=== PATIENT | female | born 1945 | race Caucasian/White ===

== ENCOUNTER 2016-10-15 15:38 | Inpatient (IN) ==
[2016-10-15] MEDS ORDERED: TYLENOL PO PRN (15:58)
[2016-10-15] MEDS ORDERED: ATROPINE SULFATE PFS IVP PRN (15:58)
[2016-10-15] MEDS ORDERED: NITROSTAT SL PRN (15:58)
[2016-10-15] MEDS ORDERED: MORPHINE 4 MG/ML SYRINGE IVP PRN (15:58)
[2016-10-15] MEDS ORDERED: VISTARIL INJ IM PRN (15:58)
[2016-10-15] MEDS ORDERED: LOVENOX SUBCUT SCH (16:00)
[2016-10-15] MEDS ORDERED: VASOTEC IV IVP STA (16:15)
[2016-10-15 16:20] VITALS: BMI 25.8
[2016-10-15 16:20] LABS: BASOPHILS % (AUTO) 0.4 % (0.0-3.0); EOSINOPHILS # (AUTO) 0.1 K/ul (0.0-0.7); EOSINOPHILS % (AUTO) 1.4 % (0.0-7.0); HEMATOCRIT 41.4 % (37.0-47.0); HEMOGLOBIN 14.2 g/dl (12.0-16.0); IMMATURE GRANULOCYTE % (AUTO) 0.5 % (0.0-5.0); LYMPHOCYTES # (AUTO) 1.2 K/uL (0.60-3.4); LYMPHOCYTES % (AUTO) 20.9 (10.0-50.0); MEAN CORPUSCULAR HEMOGLOBIN 30.2 pg (27.0-31.0); MEAN CORPUSCULAR HGB CONC 34.3 (31.8-35.4); MEAN CORPUSCULAR VOLUME 88.1 fl (81.0-99.0); MONOCYTES # (AUTO) 0.4 K/uL (0.4-2.0); MONOCYTES % (AUTO) 6.9 (0-10); NEUTROPHILS % (AUTO) 69.9; PLATELET COUNT 179 10^3/uL (140-440); WHITE BLOOD COUNT 5.65 K/ul (4.6-10.2)
--- NOTE | 2016-10-15 16:59 | DI ---
EXAM: Chest one view, frontal view only. HISTORY: Cough. COMPARISON: None available. FINDINGS: Heart is enlarged. There is no vascular congestion. Lungs are clear without pleural eff usion or pneumothorax. No acute osseous abnormality identified. IMPRESSION: Cardiomegaly.
[2016-10-15 17:00] LABS: ALANINE AMINOTRANSFERASE 29 U/L (12-78); ALBUMIN 4.1 g/dL (3.4-5.0); ALBUMIN/GLOBULIN RATIO 1.24; ALKALINE PHOSPHATASE 98 U/L (53-141); ASPARTATE AMINO TRANSFERASE 30 U/L (15-37); BILIRUBIN,TOTAL 0.82 mg/dL (0.00-1.20); BLOOD UREA NITROGEN 10 mg/dL (7-18); BUN/CREATININE RATIO 12.98; CALCIUM 9.7 mg/dL (8.2-10.2); CARBON DIOXIDE 25 mmol/L (23-31); CHLORIDE 106 mmol/L (98-107); CREATINE KINASE 90 U/L; CREATININE 0.77 mg/dL (0.60-1.30); GLUCOSE 102 mg/dL (82-115); MYOGLOBIN 30 ng/ml; SODIUM 140 mmol/L (136-145); TOTAL PROTEIN 7.4 g/dL (5.8-8.1)
--- NOTE | 2016-10-15 17:04 | CT ---
EXAM: CT of the head without contrast History: Dizziness and lightheadedness Comparison: None available. Technique: Multiplanar CT images through the head were obtained without the administration of IV co ntrast Findings: The visualized paranasal sinuses and mastoid air cells are clear in general. No acute ca lvarial abnormalities. Intracranially the ventricular and cisternal spaces are normal in size, shape and configuration for a patient of this age. No dominant mass or midline shift. No hydrocephalous. No acute intracrania l hemorrhage or abnormal extraaxial fluid collections. Benign thick calcification seen along the an terior falx. Impression: No acute intracranial process.
[2016-10-15 17:17] LABS: BILIRUBIN,URINE Negative (NEGATIVE); KETONES,URINE Negative (NEGATIVE); LEUKOCYTE ESTERASE ,URINE Negative (NEGATIVE); NITRITE,URINE Negative (NEGATIVE); PROTEIN,URINE Negative (NEGATIVE); URINE, BLOOD 1+ (NEGATIVE)
[2016-10-15 17:20] LABS: ADD URINE MICROSCOPIC YES
[2016-10-15] MEDS: SODIUM CHLORIDE 1,000 ML IV SCH (17:31)
[2016-10-15] MEDS ORDERED: XANAX PO STA (17:41)
[2016-10-15] MEDS: CATAPRES PO PRN (18:17)
[2016-10-15] MEDS: TOPROL XL PO SCH (20:20)
[2016-10-16 01:28] LABS: CREATINE KINASE 64 U/L; MYOGLOBIN 27 ng/ml
[2016-10-16 05:53] LABS: BASOPHILS % (AUTO) 0.6 % (0.0-3.0); EOSINOPHILS # (AUTO) 0.1 K/ul (0.0-0.7); EOSINOPHILS % (AUTO) 3.3 % (0.0-7.0); HEMATOCRIT 36.7 % (37.0-47.0); HEMOGLOBIN 12.3 g/dl (12.0-16.0); IMMATURE GRANULOCYTE % (AUTO) 0.3 % (0.0-5.0); LYMPHOCYTES # (AUTO) 1.1 K/uL (0.60-3.4); LYMPHOCYTES % (AUTO) 33.8 (10.0-50.0); MEAN CORPUSCULAR HEMOGLOBIN 30.1 pg (27.0-31.0); MEAN CORPUSCULAR HGB CONC 33.5 (31.8-35.4); MONOCYTES # (AUTO) 0.3 K/uL (0.4-2.0); MONOCYTES % (AUTO) 9.7 (0-10); NEUTROPHILS # (AUTO) 1.7 K/ul (2.0-6.9); NEUTROPHILS % (AUTO) 52.3; PLATELET COUNT 122 10^3/uL (140-440); RED BLOOD COUNT 4.08 10^6/ul (4.20-5.40); WHITE BLOOD COUNT 3.31 K/ul (4.6-10.2)
[2016-10-16 06:13] LABS: ALBUMIN 3.4 g/dL (3.4-5.0); ALBUMIN/GLOBULIN RATIO 1.26; ANION GAP 10.2; BILIRUBIN,TOTAL 0.81 mg/dL (0.00-1.20); BUN/CREATININE RATIO 13.23; CALCIUM 8.9 mg/dL (8.2-10.2); CREATININE 0.68 mg/dL (0.60-1.30); POTASSIUM 4.2 mmol/L (3.5-5.10); TOTAL PROTEIN 6.1 g/dL (5.8-8.1)
[2016-10-16] MEDS: CELEXA PO SCH (08:58)
[2016-10-16] MEDS: ELIQUIS PO SCH ×2 (08:59→20:28)
[2016-10-16] MEDS: TOPROL XL PO SCH ×2 (08:59→20:28)
[2016-10-16] MEDS ORDERED: ZESTRIL PO SCH ×3 (09:00)
[2016-10-16] MEDS: HYDROCHLOROTHIAZIDE PO SCH (09:00)
[2016-10-16] MEDS ORDERED: ASPIRIN EC PO SCH (09:00)
[2016-10-16] MEDS: ASPIRIN EC PO SCH (09:00)
--- NOTE | 2016-10-16 12:46 | PCM.PROG ---
Attending Provider: ATTENDING PROVIDER: Dr. DANIELLE AMAYA DATE OF SERVICE: 10/16/16 SUBJECTIVE: This 71 year old WHITE/ F was hospitalized 10/15/16. The patient is admitted with severe uncontrolled hypertension. The patient is in atrial fibrillation (has been for a long time). She states she feels weak and "out of breath" when getting up to the bathroom. She denies any dizziness. No nausea. Chest x-ray showed cardiomegaly. Heart rate is controlled now. CT scan of head is negative for stroke. The patients CHADS2 VASC score with hypertension and age is 3. I discussed with the patient the need for blood thinners and she finally agreed. I discussed the side effects of blood thinners to include intracranial and GI bleed to which she verbalized understanding. REVIEW OF SYSTEMS: CONSTITUTIONAL: Weakness. No fever, no chills. ENDOCRINE: No weight loss or weight gain. HEENT: No sinus drainage, no sore throat. CVS: No angina symptoms. No CHF symptoms. No palpitations. No atypical chest pain for CAD. No shortness of breath at rest. RESPIRATORY: No cough, no hemoptysis. GI: No melena. No abdominal pain. No nausea, no vomiting. : No hematuria. No polyuria. SKIN: No rash. No wounds. MUSCULOSKELETAL: No pain. ROULETTE DEALER: No blackout, no dizziness. No headache. No double vision. PSYCHIATRIC: Not anxious; no depression. No suicidal thoughts. No homicidal thoughts. PHYSICAL EXAMINATION: GENERAL: Lying in bed in no distress. VITAL SIGNS: Temperature 97.5 F, Pulse 62, Respiratory Rate 18, BP 138/87, Pulse Ox 95% HEENT: Normocephalic, atraumatic. Mucosa is dry, pallor positive. NECK: No JVP, no carotid bruit. No lymphadenopathy. CARDIAC: S1, S2, no S3. Irregularly irregular heart rate. LUNGS: Clear to auscultation. ABDOMEN: Soft, non-tender. Bowel sounds active. No rigidity, guarding or CVA tenderness. EXTREMITIES: No clubbing, cyanosis or edema. NEUROLOGIC: Awake, alert and oriented x3. LYMPHATIC: No palpable lymph nodes SKIN: Not dry. Intact. MUSCULOSKELETAL: No joint swelling. LAB REVIEW: 10/16/16 05:40 10/16/16 05:40 10/16/16 05:40: WBC 3.31 L, RBC 4.08 L, Hgb 12.3, Hct 36.7 L, MCV 90.0, MCH 30.1 , MCHC 33.5, RDW Coeff of Noemi 12.4, Plt Count 122 L D, Immature Gran % (Auto) 0.3, Neut % (Auto) 52.3, Lymph % (Auto) 33.8, [place] % (Auto) 9.7, Eos % (Auto) 3.3, Baso % (Auto) 0.6, Immature Gran # (Auto) 0.0, Neut # 1.7 L, Lymph # 1.1, [place] # 0.3 L, Eos # 0.1, Baso # 0.0, Sodium 140, Potassium 4.2, Chloride 105, Carbon Dioxide 29, Anion Gap 10.2, BUN 9, Creatinine 0.68, Estimated GFR (MDRD) 85.00, BUN/Creatinine Ratio 13.23, Glucose 100, Calcium 8.9, Total Bilirubin 0.81, AST 21, ALT 22, Alkaline Phosphatase 80, Total Protein 6.1, Albumin 3.4, Globulin 2.7, Albumin/Globulin Ratio 1.26 10/16/16 00:45: Total Creatine Kinase 64, Myoglobin 27, Troponin I < 0.0100 10/15/16 16:30: Urine Color Yellow, Urine Clarity Clear, Urine pH 7.0, Ur Specific Deale 1.010, Urine Protein Negative, Urine Glucose (UA) Negative, Urine Ketones Negative, Urine Blood 1+, Urine Nitrite Negative, Urine Bilirubin Negative, Urine Urobilinogen 0.2, Ur Leukocyte Esterase Negative, Urine Microscopic RBC 2-5, Ur Squamous Epith Cells 10-20 10/15/16 16:13: WBC 5.65, RBC 4.70, Hgb 14.2, Hct 41.4, MCV 88.1, MCH 30.2, MCHC 34.3, RDW Coeff of Noemi 12.5, Plt Count 179, Immature Gran % (Auto) 0.5, Neut % (Auto) 69.9, Lymph % (Auto) 20.9, [place] % (Auto) 6.9, Eos % (Auto) 1.4, Baso % (Auto) 0.4, Immature Gran # (Auto) 0.0, Neut # 4.0, Lymph # 1.2, [place] # 0.4, Eos # 0.1, Baso # 0.0, D-Dimer (Manual) 834.48, Sodium 140, Potassium 4.0, Chloride 106, Carbon Dioxide 25, Anion Gap 13.0, BUN 10, Creatinine 0.77, Estimated GFR (MDRD) 74.00, BUN/Creatinine Ratio 12.98, Glucose 102, Calcium 9.7 , Total Bilirubin 0.82, AST 30, ALT 29, Alkaline Phosphatase 98, Total Creatine Kinase 90, Myoglobin 30, Troponin I < 0.0100, B-Natriuretic Peptide 427 H, Total Protein 7.4, Albumin 4.1, Globulin 3.3, Albumin/Globulin Ratio 1.24, TSH 1.023 ASSESSMENT: 1. Hypertension uncontrolled 2. Atrial fibrillation 3. Depression 4. Cardiomegaly 5. Anxiety disorder 6. Osteoarthritis PLAN: 1. Eliquis 5 mg b.i.d. 2. Stop Lovenox 3. CT scan of chest without 4. Increase Zestril to 40 mg 5. Echocardiogram 6. Continue rest of her home medications Plan and coordination of the patient's care discussed in the presence of Family Consumer Science Teacher and nurse. CONDITION: Stable SCRIBED BY: GLORIA IVY Tailer In scribed while in presence of service performed by Dr. DANIELLE AMAYA on 10/16/16 ([id number])
[2016-10-16] MEDS: NORCO 5-325 PO PRN (14:16)
--- NOTE | 2016-10-16 14:44 | CT ---
EXAM: CT chest without contrast HISTORY: Shortness of breath COMPARISON: Chest x-ray 10/15/2016 TECHNIQUE: Serial axial images of the chest were obtained from the lung apices to the upper abdomen without contrast. These were viewed in multiple planes. FINDINGS: The thyroid i demonstrates a low attenuation left inferior thyroid lesion measuring 3.3 x 1.8 cm. The visualized vessels demonstrate mild atherosclerotic disease without aneurysm or stenosi s. The heart is mildly enlarged without pericardial effusion. There are no pathologically enlarged lymph nodes. Few scattered calcified hilar lymph nodes are present. There is no pneumothorax. There is trace right pleural fluid with minimal adjacent consolidation. The lungs demonstrate no nodule or mass. There is minimal ground-glass in the lingula. No airway o bstruction is identified. The airways are patent bilaterally. Limited views of the upper abdomen are unremarkable. There is calcified granulomas of the spleen an d liver. The osseous structures demonstrate sclerotic density in the posterior right T6 vertebral b thu which extends minimally into the right pedicle. No additional lytic or sclerotic lesion is iden tified. IMPRESSION: 1. Mild cardiomegaly with no pericardial fluid. 2. Trace right pleural fluid with minimal adjacent consolidation most consistent with atelectasis. 3. Minimal ground-glass in the lingula likely representing atelectasis. 4. Nonspecific sclerosis of the right T6 vertebral body with minimal extension into the pedicle. T his may represent benign versus neoplastic process. No additional osseous sclerotic lesion is ident ified to suggest metastatic disease. If further evaluation is indicated, bone scan may be obtained. 5. Sequela of old granulomatous disease.
[2016-10-17] MEDS: SODIUM CHLORIDE 1,000 ML IV SCH (01:30)
[2016-10-17 06:51] LABS: BASOPHILS % (AUTO) 0.6 % (0.0-3.0); EOSINOPHILS # (AUTO) 0.1 K/ul (0.0-0.7); HEMATOCRIT 37.5 % (37.0-47.0); HEMOGLOBIN 12.3 g/dl (12.0-16.0); IMMATURE GRANULOCYTE % (AUTO) 0.3 % (0.0-5.0); LYMPHOCYTES # (AUTO) 1.1 K/uL (0.60-3.4); LYMPHOCYTES % (AUTO) 31.9 (10.0-50.0); MEAN CORPUSCULAR HEMOGLOBIN 29.5 pg (27.0-31.0); MEAN CORPUSCULAR HGB CONC 32.8 (31.8-35.4); MEAN CORPUSCULAR VOLUME 89.9 fl (81.0-99.0); MONOCYTES # (AUTO) 0.4 K/uL (0.4-2.0); NEUTROPHILS # (AUTO) 1.9 K/ul (2.0-6.9); NEUTROPHILS % (AUTO) 53.2; PLATELET COUNT 148 10^3/uL (140-440); RED BLOOD COUNT 4.17 10^6/ul (4.20-5.40); WHITE BLOOD COUNT 3.51 K/ul (4.6-10.2)
[2016-10-17 07:09] LABS: ALBUMIN 3.5 g/dL (3.4-5.0); ALBUMIN/GLOBULIN RATIO 1.3; ANION GAP 9.2; BILIRUBIN,TOTAL 0.44 mg/dL (0.00-1.20); BUN/CREATININE RATIO 16.43; CREATININE 0.73 mg/dL (0.60-1.30); POTASSIUM 4.2 mmol/L (3.5-5.10); TOTAL PROTEIN 6.2 g/dL (5.8-8.1)
[2016-10-17] MEDS: ASPIRIN EC PO SCH (08:59)
[2016-10-17] MEDS: ELIQUIS PO SCH ×2 (09:00→20:37)
[2016-10-17] MEDS: CELEXA PO SCH (09:00)
[2016-10-17] MEDS: TOPROL XL PO SCH ×2 (09:01→20:38)
[2016-10-17] MEDS: HYDROCHLOROTHIAZIDE PO SCH (09:01)
[2016-10-17] MEDS: ZESTRIL PO SCH ×2 (09:02→20:38)
[2016-10-17] MEDS: NORCO 5-325 PO PRN (19:19)
[2016-10-17] MEDS: CATAPRES PO PRN (21:26)
[2016-10-18 05:32] VITALS: BP 126/70; TEMP 96.5
[2016-10-18 06:19] LABS: ALBUMIN 3.7 g/dL (3.4-5.0); ALBUMIN/GLOBULIN RATIO 1.32; ANION GAP 10.2; BILIRUBIN,TOTAL 0.53 mg/dL (0.00-1.20); BUN/CREATININE RATIO 17.94; CALCIUM 9.6 mg/dL (8.2-10.2); CREATININE 0.78 mg/dL (0.60-1.30); POTASSIUM 4.2 mmol/L (3.5-5.10); TOTAL PROTEIN 6.5 g/dL (5.8-8.1)
[2016-10-18 06:53] LABS: BASOPHILS % (AUTO) 0.7 % (0.0-3.0); EOSINOPHILS # (AUTO) 0.1 K/ul (0.0-0.7); EOSINOPHILS % (AUTO) 3.1 % (0.0-7.0); HEMATOCRIT 40.8 % (37.0-47.0); HEMOGLOBIN 13.4 g/dl (12.0-16.0); IMMATURE GRANULOCYTE % (AUTO) 0.2 % (0.0-5.0); LYMPHOCYTES # (AUTO) 1.4 K/uL (0.60-3.4); LYMPHOCYTES % (AUTO) 33.8 (10.0-50.0); MEAN CORPUSCULAR HEMOGLOBIN 29.6 pg (27.0-31.0); MEAN CORPUSCULAR HGB CONC 32.8 (31.8-35.4); MEAN CORPUSCULAR VOLUME 90.3 fl (81.0-99.0); MONOCYTES # (AUTO) 0.4 K/uL (0.4-2.0); MONOCYTES % (AUTO) 10.6 (0-10); NEUTROPHILS # (AUTO) 2.1 K/ul (2.0-6.9); NEUTROPHILS % (AUTO) 51.6; PLATELET COUNT 163 10^3/uL (140-440); RED BLOOD COUNT 4.52 10^6/ul (4.20-5.40); WHITE BLOOD COUNT 4.14 K/ul (4.6-10.2)
[2016-10-18] MEDS: ELIQUIS PO SCH (08:35)
[2016-10-18] MEDS: ASPIRIN EC PO SCH (08:35)
[2016-10-18] MEDS: ZESTRIL PO SCH (08:36)
[2016-10-18] MEDS: CELEXA PO SCH (08:36)
[2016-10-18] MEDS: TOPROL XL PO SCH (08:36)
[2016-10-18] MEDS: HYDROCHLOROTHIAZIDE PO SCH (08:36)
--- NOTE | 2016-10-20 13:04 | DS ---
DATE OF SERVICE: 10/18/16 FINAL DIAGNOSIS: 1. Hypertension, uncontrolled 2. Atrial fibrillation 3. Cardiomegaly 4. Dyslipidemia 5. Anxiety disorder 6. Depression 7. Osteoarthritis 8. DJD spine DISCHARGE INSTRUCTIONS: Discharge the patient home. Outpatient echocardiogram. Followup with Dr. Robles on 10/22/16. Will schedule an echocardiogram as an outpatient. MEDICATIONS AT DISCHARGE: Aspirin Toprol XL Celexa Hurley Eliquis Hydrochlorothiazide Zestril Xanax NEW PRESCRIPTIONS: Eliquis 5mg PO twice a day CHANGE OF DOSAGE: Lisinopril 40mg twice a day Hydrochlorothiazide 12.5mg PO daily Hydrocodone 1 tablet PO at bedtime Citalopram 20mg PO daily Xanax 0.25mg PO twice a day PRN DIET INSTRUCTIONS: Cardiac and healthy ACTIVITY: As much as tolerated SMOKING: Former Smoker DISEASE SPECIFIC EDUCATION: Hypertension Risk of stroke Atrial Fibrillation halfway anticoagulation, GI bleed and intracranial bleed been discussed. HOSPITAL COURSE: Kelsey Lang who is a 71 year old female came to the office complaining of feeling funny and headache and dizziness. Blood pressures was 200/136 in the office in both arms. At that time the patient was admitted to the hospital and given a dose of Enalaprilat 1.25mg was given and then Clonidine 0.2mg PRN was given. Lisinopril was gradually increased to 40mg PO daily. Chest x-ray showed the cardiomegaly and CT head was negative and CT chest again showed the cardiomegaly. CT chest without contrast again showed the cardiomegaly. No pericardial effusion. Lisinopril 40mg PO twice a day. Meanwhile the patient was anxious, Xanax was given which did help her. As her CHADS2 score was 3 the patient was put on Eliquis with the atrial fibrillation uncontrolled rate, risk of GI bleed and intracranial bleed been discussed. The patient is scheduled for the outpatient echocardiogram as Dr. Degroot could not do inpatient one. TIME SPENT: More than 45 minutes today. DARIO
--- NOTE | 2016-10-21 13:08 | PN ---
DATE OF SERVICE: 10/17/16 SUBJECTIVE: The patient was admitted with the rapid atrial fibrillation and uncontrolled blood pressure. Blood pressure been better and the heart rate is controlled 65 and 64. The patient is due for the ultrasound of the heart today. The patient's daughter was in the room and had a lot of questions, all of them were answered. REVIEW OF SYSTEMS: CONSTITUTIONAL: No fever, no chills. HEENT: Normal. ENDOCRINE: No weight gain, no weight loss. CVS: No angina symptoms. No CHF symptoms. No palpitations. No atypical chest pain for CAD. No shortness of breath. No PND, no orthopnea. RESPIRATORY: No cough, no hemoptysis. GI: No nausea, no vomiting. No abdominal pain. : No hematuria. No polyuria. MUSCULOSKELETAL:. No joint swelling. PSYCHIATRIC: Not anxious. No depression. No suicidal thoughts. No homicidal thoughts. SKIN: Intact. No rash. PHYSICAL EXAMINATION: V/S: Blood pressure 152/83, heart rate 65, respiratory rate 18, temperature 97.6 and pulse ox 95%. HEENT: Normocephalic, atraumatic. Mucosa . NECK: Supple. No JVD, no carotid bruit. No lymphadenopathy. LUNGS: Clear to auscultation. No rales or rhonchi. HEART: Irregular heart rate. S1, S2 normal. No S3. No murmur, gallop or regurgitation. ABDOMEN: Soft, nontender. Bowel sounds active. No rigidity. No rebound or guarding. No CVA tenderness. EXTREMITIES: No clubbing, cyanosis or pedal edema. MUSCULOSKELETAL: No joint swelling. NEUROLOGIC: Awake, alert, oriented times three. No focal deficit. LYMPHATIC: No lymph nodes palpable. SKIN: Intact. LABS: WBC 3.31, hgb 12.3, hct 36.7, plt count 122, sodium 140, potassium 4.2, chloride 105, bicarb 29, BUN 9 and creatinine 0.68. Three sets of cardiac enzymes are negative. ASSESSMENT: 1. Uncontrolled hypertension 2. Atrial fibrillation, on Eliquis 3. Hypertension 4. Dyslipidemia 5. Osteoarthritis 6. DJD Spine PLAN: 1. Echocardiogram today 2. Will increase the Lisinopril to 40mg twice a day 3. Out of bed 4. Activity as tolerated 5. Stop the IV fluids Will follow the patient. TIME SPENT: More than 30 minutes MTDD
--- NOTE | 2016-10-21 14:09 | PN ---
DATE OF SERVICE: 10/18/16 SUBJECTIVE: The patient is doing good. No headache, nausea or vomiting. Blood pressure was slightly elevated in the morning. The patient says that she is getting more anxious being in the hospital. REVIEW OF SYSTEMS: CONSTITUTIONAL: No fever, no chills. HEENT: Normal. ENDOCRINE: No weight gain, no weight loss. CVS: No angina symptoms. No CHF symptoms. No palpitations. No atypical chest pain for CAD. No shortness of breath. No PND, no orthopnea. RESPIRATORY: No cough, no hemoptysis. GI: No nausea, no vomiting. No abdominal pain. : No hematuria. No polyuria. MUSCULOSKELETAL:. No joint swelling. PSYCHIATRIC: Anxious. No depression. No suicidal thoughts. No homicidal thoughts. SKIN: Intact. No rash. PHYSICAL EXAMINATION: V/S: Blood pressure 126/70, respiratory rate 19, heart rate 69, temperature 96.5. HEENT: Normocephalic, atraumatic. Mucosa dry. NECK: Supple. No JVD, no carotid bruit. No lymphadenopathy. LUNGS: Clear to auscultation. No rales or rhonchi. HEART: S1, S2 normal. No S3. No murmur, gallop or regurgitation. ABDOMEN: Soft, nontender. Bowel sounds active. No rigidity. No rebound or guarding. No CVA tenderness. EXTREMITIES: No clubbing, cyanosis or pedal edema. MUSCULOSKELETAL: No joint swelling. NEUROLOGIC: Awake, alert, oriented times three. No focal deficit. LYMPHATIC: No lymph nodes palpable. SKIN: Intact. LABS: White count is 4.14, hemoglobin 13.4, hematocrit 40.8, platelet count 163 , sodium 138, potassium 4.2, chloride 100, bicarb 32, BUN 14, creatinine 0.78. ASSESSMENT: 1. STATUS POST UNCONTROLLED HYPERTENSION 2. ATRIAL FIBRILLATION 3. DEPRESSION 4. CARDIOMEGALY 5. ANXIETY DISORDER 6. OSTEOARTHRITIS PLAN: 1. Discharge the patient home on Eliquis 5 mg twice a day. 2. intermodal dispatcher anticoagulation, side effects, GI bleed and intracranial bleed was discussed. 3. Lisinopril 40 mg p.o. twice daily. 4. Xanax 0.25 mg twice a day prn. 5. Hydrocodone 5/325 mg daily at night time. 6. Hydrochlorothiazide 12.5 mg 7. Fall precautions and Stroke risk was discussed and she verbalized understanding. 8. Will follow up with the patient within one week in the office. TIME SPENT: More than 30 minutes DARIO
== END 2016-10-18 10:55 | disposition home or self-care (01) | DRG 305 ==
LOC: MEDSURG B 15:38
PROVIDERS: ADMIT Emergency Medicine; ATTEND Emergency Medicine
DX: I10 Essential (primary) hypertension (principal); I48.2 Chronic atrial fibrillation; I51.7 Cardiomegaly; R51 Headache; R42 Dizziness and giddiness; E78.5 Hyperlipidemia, unspecified; F41.8 Other specified anxiety disorders; M19.90 Unspecified osteoarthritis, unspecified site; M47.9 Spondylosis, unspecified; Z79.899 Other long term (current) drug therapy
CPT/HCPCS: 36415; 80053; 81001; 82550; 83874; 83880; 84443; 84484; 85025; 85379; 93005; 93010

== ENCOUNTER 2016-10-21 06:45 | Outpatient (CLI) ==
--- NOTE | 2016-10-22 09:52 | ECHO2D ---
Date of Exam: 10/21/16 Ordering Physician: MARILU ANTON Reason for Echo: CARDIOMEGALY/HTN/A-FIB M-Mode Normal Adult Results LV Dimensions Normal Adult Results AoV Opening excursions >1.6 >1.8 LVEDD-base- 3.5-5.8 4.9 Ao root dimensions 2.0-3.7 3.6 LVESD-base- 3.1-4.6 L. Atrium dimensions 1.9-3.8 4.4 Post. Wall thickness 0.8-1.1 1.1 IV septum (thickness) 0.7-1.2 1.0 Post. Wall excursion 0.72-1.3 NORMAL Septal motion NORMAL Systolic motion R. Ventricular cavity 1.5-2.0 NORMAL LVEF 60% 57% Paradoxical septal wall motion NORMAL 2-D : 2-D M Mode Echocardiogram was performed using apical four chamber and left parasternal long and short axis views. Mitral, tricuspid and aortic valves appear to be normal. Contractility of the left ventricle seems to be normal, so is the cavity size. Enlarged left atrial cavity. Aortic root appears to be normal. There is no pericardial effusion. There is no thrombus noted in the left ventricular or left aortic cavity. No mitral valve prolapse noted. DOPPLER WITH COLORFLOW: MILD TO MODERATE MITRAL REGURGITATION NOTED, MILD TRICUSPID REGURGITATION, AND MODERATE AORTIC REGURGITATION M-MODE: MV: NORMAL AV: NORMAL TV: NORMAL PV: CHAMBER SIZE: ENLARGED LEFT ATRIAL CAVITY WALL MOTION: NORMAL PERICARDIUM: NORMAL INTERPRETATION: 1. ENLARGED LEFT ATRIAL CAVITY 2. NORMAL LEFT VENTRICULAR CONTRACTILITY 3. NORMAL VALVES 4. MODERATE AORTIC REGURGITATION, TRICUSPID REGURGITATION, AND MILD MITRAL REGURGITATION MTDD
== END 2016-10-21 06:46 | disposition home or self-care (01) ==
LOC: CAR 06:45
PROVIDERS: ATTEND Internal Medicine
DX: I48.91 Unspecified atrial fibrillation (principal); I10 Essential (primary) hypertension; I51.7 Cardiomegaly

== ENCOUNTER 2017-02-27 11:58 | Inpatient (IN) ==
[2017-02-27] MEDS ORDERED: SODIUM CHLORIDE 1,000 ML IV STA (12:11)
--- NOTE | 2017-02-27 12:37 | CT ---
EXAM: CT brain without contrast HISTORY: Dizziness TECHNIQUE: Multi-slice sequential. Coronal and sagittal reformations were performed. COMPARISON: 10/15/2016 FINDINGS: There is no acute intracranial hemorrhage, extraxial fluid collection, mass affect, or midlineshift. There is mild diffuse sulcal prominence. Ventricular prominence is consistent with the degree of p arenchymal volume loss. Periventricular white matter hypodensity is seen. Intracranial atheroscler osis is present. The basal cisterns are patent. There is a largely empty sella. No large vascular t erritory area of hypodensity is seen within the brain. The calvarium is unremarkable. Visualized pa ranasal sinuses are clear. Mastoid air cells are clear. IMPRESSION: 1. No acute intracranial findings. 2. Age-related changes of mild parenchymal volume loss, small vessel ischemic disease, and intracra nial atherosclerosis. 3. Largely empty sella.
[2017-02-27 13:31] LABS: BASOPHILS % (AUTO) 0.5 % (0.0-3.0); EOSINOPHILS # (AUTO) 0.1 K/ul (0.0-0.7); EOSINOPHILS % (AUTO) 1.1 % (0.0-7.0); HEMATOCRIT 39.4 % (37.0-47.0); HEMOGLOBIN 13.2 g/dl (12.0-16.0); IMMATURE GRANULOCYTE % (AUTO) 0.5 % (0.0-5.0); LYMPHOCYTES # (AUTO) 0.9 K/uL (0.60-3.4); LYMPHOCYTES % (AUTO) 20.6 (10.0-50.0); MEAN CORPUSCULAR HEMOGLOBIN 29.6 pg (27.0-31.0); MEAN CORPUSCULAR HGB CONC 33.5 (31.8-35.4); MEAN CORPUSCULAR VOLUME 88.3 fl (81.0-99.0); MONOCYTES # (AUTO) 0.3 K/uL (0.4-2.0); MONOCYTES % (AUTO) 7.1 (0-10); NEUTROPHILS # (AUTO) 3.1 K/ul (2.0-6.9); NEUTROPHILS % (AUTO) 70.2; PLATELET COUNT 174 10^3/uL (140-440); RED BLOOD COUNT 4.46 10^6/ul (4.20-5.40); WHITE BLOOD COUNT 4.36 K/ul (4.6-10.2)
[2017-02-27 13:41] LABS: BILIRUBIN,URINE Negative (NEGATIVE); KETONES,URINE Negative (NEGATIVE); LEUKOCYTE ESTERASE ,URINE Trace (NEGATIVE); NITRITE,URINE Negative (NEGATIVE); PH,URINE 5.5 (5-9); PROTEIN,URINE Negative (NEGATIVE); URINE, BLOOD 2+ (NEGATIVE)
[2017-02-27 13:42] LABS: ADD URINE MICROSCOPIC YES
[2017-02-27 13:43] LABS: BACTERIA,URINE 3+ (NOT PRESENT)
[2017-02-27 13:54] LABS: ALANINE AMINOTRANSFERASE 24 U/L (12-78); ALBUMIN 3.7 g/dL (3.4-5.0); ALBUMIN/GLOBULIN RATIO 1.28; ALKALINE PHOSPHATASE 81 U/L (53-141); ANION GAP 15.7; ASPARTATE AMINO TRANSFERASE 21 U/L (15-37); BILIRUBIN,TOTAL 0.91 mg/dL (0.00-1.20); BLOOD UREA NITROGEN 10 mg/dL (7-18); BUN/CREATININE RATIO 13.15; CALCIUM 9.2 mg/dL (8.2-10.2); CARBON DIOXIDE 28 mmol/L (23-31); CHLORIDE 99 mmol/L (98-107); CREATINE KINASE 72 U/L; CREATININE 0.76 mg/dL (0.60-1.30); GLUCOSE 84 mg/dL (82-115); POTASSIUM 3.7 mmol/L (3.5-5.10); SODIUM 139 mmol/L (136-145); TOTAL PROTEIN 6.6 g/dL (5.8-8.1)
--- NOTE | 2017-02-27 14:07 | ED.PDOC ---
General ED Provider: Dr. PRACHI GUTIERREZ-ER Chief Complaint: Dizziness Stated Complaint: i worked outside and now i am dizzy Time Seen by Physician: 12:05 Mode of Arrival: Walk-In Information Source: Patient, Family Exam Limitations: No limitations Primary Care Provider: MARILU ANTON Nursing and Triage Documentation Reviewed and Agree: Yes Neurological Complaint Exam - Dizziness Complaint/Exam Last Known Well: yesterday Onset: Sudden Symptoms Are: Still present Timing: Constant Episodes Lasting: Hours Initial Severity: Mild Current Severity: Mild Character: Reports: Lightheaded, Dizzy. Denies: Head spinning, Room spinning, Weak Aggravating: Reports: Position change Alleviating: Reports: None Associated Signs and Symptoms: Reports: Nausea, Palpitations, Unsteady gait, Loss of balance. Denies: Vomiting, Diaphoresis, Tinnitus, Chest pain, Short of air, GI blood loss, Visual changes, Decreased oral intake, Change in medication , Change in diet, OTC meds Related History: Similar episode CVA Risk Factors: Reports: None JVD Present: No Carotid Bruit Present: No Rectal Heme Positive: No Glascow Coma Scale (see protocol): 15 Nystagmus Present: No Gag Reflex Present: Yes Meningeal Signs Positive: No Focal Weakness: Present: None Focal Sensory Loss: Present: None Gait: Abnormal [id number]: Normal Findings Romberg Test Positive: No Babinski Sign: Negative Right, Negative Left Heel to Toe Normal: Yes [place]-Hallpike Test Positive: No Differential Diagnoses: Hypovolemia, Meniere's, Metabolic abnormalities, Other Quality Indicator For Non-Traumatic Chest Pain/Syncope: EKG Performed Review of Systems - Review Of Systems Constitutional: Reports: Weakness Eyes: Reports: No symptoms Ears, Nose, Mouth, Throat: Reports: No symptoms Respiratory: Reports: No symptoms Cardiac: Reports: No symptoms GI: Reports: No symptoms : Reports: No symptoms Musculoskeletal: Reports: No symptoms Skin: Reports: No symptoms Neurological: Reports: Weakness Endocrine: Reports: No symptoms Hematologic/Lymphatic: Reports: No symptoms All Other Systems: Reviewed and Negative Past Medical History - Past Medical History Previously Healthy: Yes Endocrine: Reports: Other Cardiovascular: Reports: A-Fib Respiratory: Reports: Other Hematological: Reports: Unknown Gastrointestinal: Reports: Unknown Genitourinary: Reports: Unknown Neuro/Psych: Reports: Unknown Musculoskeletal: Reports: Unknown Cancer: Reports: Unknown Last Menstrual Period: POST MENOPAUSAL - Surgical History General Surgical History: Reports: Unknown - Family History Family History: Reports: Unknown - Social History Smoking Status: Former smoker Hx Substance Use: No Alcohol Screening: None Lives: With family - Immunizations Tetanus Shot up to Date: No (PATIENT IS UNSURE) Physical Exam - Physical Exam Appearance: Well-appearing, No pain distress, Well-nourished Eyes: SLICK, EOMI, Conjunctiva clear ENT: Ears normal, Nose normal, Oropharynx normal Neck: Supple Respiratory: Airway patent, Breath sounds clear, Breath sounds equal, Respirations nonlabored Cardiovascular: RRR, No rub, No murmur, Irregular rhythm, Abnormal pulses GI/: Soft, Nontender, No masses, Bowel sounds normal, No Organomegaly Musculoskeletal: Normal strength, ROM intact, No edema, No calf tenderness Skin: Warm Neurological: Sensation intact, Motor intact, Reflexes intact, Cranial nerves intact, Alert, Oriented Psychiatric: Affect appropriate, Mood appropriate Interpretation - Radiology Interpretation Radiology Interpretation By: Radiologist Radiology Results: Negative Exam Interpreted: CT Scan Physician Notification - Case Discussed Physician Notified: dr dale Time of Notification: 14:11 Critical Care Note - Critical Care Note Total Time (mins): 0 Course - Course Hematology/Chemistry: 02/27/17 13:25 02/27/17 13:25 Orders, Labs, Meds: Lab Review 02/27/17 13:25 WBC 4.36 L RBC 4.46 Hgb 13.2 Hct 39.4 MCV 88.3 MCH 29.6 MCHC 33.5 RDW Coeff of Noemi 12.7 Plt Count 174 Immature Gran % (Auto) 0.5 Neut % (Auto) 70.2 Lymph % (Auto) 20.6 [place] % (Auto) 7.1 Eos % (Auto) 1.1 Baso % (Auto) 0.5 Immature Gran # (Auto) 0.0 Neut # 3.1 Lymph # 0.9 [place] # 0.3 L Eos # 0.1 Baso # 0.0 Sodium 139 Potassium 3.7 Chloride 99 Carbon Dioxide 28 Anion Gap 15.7 BUN 10 Creatinine 0.76 Estimated GFR (MDRD) 75.00 BUN/Creatinine Ratio 13.15 Glucose 84 Calcium 9.2 Total Bilirubin 0.91 AST 21 ALT 24 Alkaline Phosphatase 81 Total Creatine Kinase 72 Troponin I < 0.0100 Total Protein 6.6 Albumin 3.7 Globulin 2.9 Albumin/Globulin Ratio 1.28 Urine Color Yellow Urine Clarity Slightly Urine pH 5.5 Ur Specific Mcgrath 1.015 Urine Protein Negative Urine Glucose (UA) Negative Urine Ketones Negative Urine Blood 2+ Urine Nitrite Negative Urine Bilirubin Negative Urine Urobilinogen 0.2 Ur Leukocyte Esterase Trace Urine Microscopic WBC 2-5 Ur Squamous Epith Cells 0-2 Urine Bacteria 3+ Orders Category Date Time Status ADMIT PATIENT INPATIENT .TO MEDSURG (MONITORED BED) ADMISSION 02/27/17 14: 13 Active EKG-(ED ONLY) Stat CARDIO 02/27/17 12:11 Ordered ACTIVITY .BR with BRP CARE 02/27/17 14:13 Active INTAKE & OUTPUT Q8HR CARE 02/27/17 14:13 Active TELEMETRY MONITORING TELE CARE 02/27/17 14:13 Active VITAL SIGNS Q4HR CARE 02/27/17 14:13 Active CARDIAC DIET DIETARY 02/27/17 Dinner Ordered ED EDUCATION FINANCE PROCESSOR APPLIED .ONCE EMERGENCY 02/27/17 12:10 Active ED IV/MEDIPORT/POWERPORT .ONCE EMERGENCY 02/27/17 12:11 Active CBC W/ AUTO DIFF DAILY@0600 LAB 02/28/17 06:00 Ordered CBC W/ AUTO DIFF DAILY@0600 LAB 03/01/17 06:00 Ordered CBC W/ AUTO DIFF DAILY@0600 LAB 03/02/17 06:00 Ordered CBC W/ AUTO DIFF DAILY@0600 LAB 03/03/17 06:00 Ordered CBC W/ AUTO DIFF DAILY@0600 LAB 03/04/17 06:00 Ordered CBC W/ AUTO DIFF DAILY@0600 LAB 03/05/17 06:00 Ordered CBC W/ AUTO DIFF DAILY@0600 LAB 03/06/17 06:00 Ordered CBC W/ AUTO DIFF DAILY@0600 LAB 03/07/17 06:00 Ordered CBC W/ AUTO DIFF DAILY@0600 LAB 03/08/17 06:00 Ordered CBC W/ AUTO DIFF DAILY@0600 LAB 03/09/17 06:00 Ordered CBC W/ AUTO DIFF DAILY@0600 LAB 03/10/17 06:00 Ordered CBC W/ AUTO DIFF DAILY@0600 LAB 03/11/17 06:00 Ordered CBC W/ AUTO DIFF DAILY@0600 LAB 03/12/17 06:00 Ordered CBC W/ AUTO DIFF DAILY@0600 LAB 03/13/17 06:00 Ordered CBC W/ AUTO DIFF DAILY@0600 LAB 03/14/17 06:00 Ordered CBC W/ AUTO DIFF DAILY@0600 LAB 03/15/17 06:00 Ordered CBC W/ AUTO DIFF DAILY@0600 LAB 03/16/17 06:00 Ordered CBC W/ AUTO DIFF DAILY@0600 LAB 03/17/17 06:00 Ordered CBC W/ AUTO DIFF DAILY@0600 LAB 03/18/17 06:00 Ordered CBC W/ AUTO DIFF DAILY@0600 LAB 03/19/17 06:00 Ordered CBC W/ AUTO DIFF Stat LAB 02/27/17 13:25 Completed COMPREHENSIVE METABOLIC PANEL DAILY@0600 LAB 02/28/17 06:00 Ordered COMPREHENSIVE METABOLIC PANEL DAILY@0600 LAB 03/01/17 06:00 Ordered COMPREHENSIVE METABOLIC PANEL DAILY@0600 LAB 03/02/17 06:00 Ordered COMPREHENSIVE METABOLIC PANEL DAILY@0600 LAB 03/03/17 06:00 Ordered COMPREHENSIVE METABOLIC PANEL DAILY@0600 LAB 03/04/17 06:00 Ordered COMPREHENSIVE METABOLIC PANEL DAILY@0600 LAB 03/05/17 06:00 Ordered COMPREHENSIVE METABOLIC PANEL DAILY@0600 LAB 03/06/17 06:00 Ordered COMPREHENSIVE METABOLIC PANEL DAILY@0600 LAB 03/07/17 06:00 Ordered COMPREHENSIVE METABOLIC PANEL DAILY@0600 LAB 03/08/17 06:00 Ordered COMPREHENSIVE METABOLIC PANEL DAILY@0600 LAB 03/09/17 06:00 Ordered COMPREHENSIVE METABOLIC PANEL DAILY@0600 LAB 03/10/17 06:00 Ordered COMPREHENSIVE METABOLIC PANEL DAILY@0600 LAB 03/11/17 06:00 Ordered COMPREHENSIVE METABOLIC PANEL DAILY@0600 LAB 03/12/17 06:00 Ordered COMPREHENSIVE METABOLIC PANEL DAILY@0600 LAB 03/13/17 06:00 Ordered COMPREHENSIVE METABOLIC PANEL DAILY@0600 LAB 03/14/17 06:00 Ordered COMPREHENSIVE METABOLIC PANEL DAILY@0600 LAB 03/15/17 06:00 Ordered COMPREHENSIVE METABOLIC PANEL DAILY@0600 LAB 03/16/17 06:00 Ordered COMPREHENSIVE METABOLIC PANEL DAILY@0600 LAB 03/17/17 06:00 Ordered COMPREHENSIVE METABOLIC PANEL DAILY@0600 LAB 03/18/17 06:00 Ordered COMPREHENSIVE METABOLIC PANEL DAILY@0600 LAB 03/19/17 06:00 Ordered COMPREHENSIVE METABOLIC PANEL Stat LAB 02/27/17 13:25 Completed CPK [CREATINE KINASE] Stat LAB 02/27/17 13:25 Completed TROPONIN I Stat LAB 02/27/17 13:25 Completed UA [URINALYSIS C & S IF INDICATED] Stat LAB 02/27/17 13:25 Completed URINE CULTURE Stat LAB 02/27/17 13:25 Received 0.9 % Sodium Chloride [Saline Flush] MEDS 02/27/17 12:11 Ordered 1 syr IVF PRN PRN Alprazolam [Xanax] MEDS 02/27/17 14:14 Ordered 0.25 mg PO BID PRN Apixaban [Eliquis] MEDS 02/27/17 21:00 Ordered 5 mg PO BID Aspirin [Aspirin EC] MEDS 02/28/17 09:00 Ordered 81 mg PO DAILY Citalopram Hydrobromide [Celexa] MEDS 02/28/17 09:00 Ordered 20 mg PO DAILY Hydrochlorothiazide MEDS 02/28/17 09:00 Ordered 12.5 mg PO DAILY Hydrocodone Bit/Acetaminophen [[place] 5-325] MEDS 02/27/17 21:00 Ordered 1 tab PO BEDTIME Lisinopril [Zestril] MEDS 02/27/17 21:00 Ordered 40 mg PO BID Metoprolol Succinate [Toprol Xl] MEDS 02/27/17 21:00 Ordered 50 mg PO BID Sodium Chloride 0.9% [Sodium Chloride] 1,000 ml MEDS 02/27/17 14:30 Ordered IV 75 mls/hr Sodium Chloride 0.9% [Sodium Chloride] 1,000 ml MEDS 02/27/17 12:11 Discontinued IV BOLUS RESUSCITATION STATUS Routine OTHERS 02/27/17 14:[address] HEAD W/O CONTRAST Stat RADS 02/27/17 12:11 Completed Medications Generic Name Dose Route Start Last Admin Trade Name Freq PRN Reason Stop Dose Admin Acetaminophen/Hydrocodone Bitart 1 tab 02/27/17 21:00 [place] 5-325 PO BEDTIME GUNJAN Alprazolam 0.25 mg 02/27/17 14:14 Xanax PO BID PRN Anxiety Apixaban 5 mg 02/27/17 21:00 Eliquis PO BID GUNJAN Aspirin 81 mg 02/28/17 09:00 Aspirin Ec PO DAILY GUNJAN Citalopram Hydrobromide 20 mg 02/28/17 09:00 Celexa PO DAILY GUNJAN Hydrochlorothiazide 12.5 mg 02/28/17 09:00 Hydrochlorothiazide PO DAILY GUNJAN Sodium Chloride 1,000 mls @ 75 mls/hr 02/27/17 14:30 Sodium Chloride IV .[id number] GUNJAN Lisinopril 40 mg 02/27/17 21:00 Zestril PO BID GUNJAN Metoprolol Succinate 50 mg 02/27/17 21:00 Toprol Xl PO BID GUNJAN Sodium Chloride 1 syr 02/27/17 12:11 Saline Flush IVF PRN PRN To flush IV Discontinued Medications Generic Name Dose Route Start Last Admin Trade Name Freq PRN Reason Stop Dose Admin Sodium Chloride 1,000 mls @ 1,000 mls/hr 02/27/17 12:11 02/27/17 12:20 Sodium Chloride IV 02/27/17 13:10 1,000 mls/hr BOLUS STA Administration Vital Signs: Temp Pulse Resp BP Pulse Ox 02/27/17 11:59 98.9 F 78 20 177/92 H 95 Departure - Departure Time of Disposition: 14:11 Disposition: ADMITTED INPATIENT Discharge Problem: Dizziness Instructions: Dizziness (ED) Condition: Good Pt referred to PMD for follow-up: Yes Allergies/Adverse Reactions: Allergies codeine Adverse Reaction (Verified 02/27/17 12:04) Iodinated Contrast- Oral and IV Dye Adverse Reaction (Verified 02/27/17 12:04) Home Medications: Ambulatory Orders Aspirin [Ecotrin] 81 mg PO DAILY 07/02/14 Metoprolol Succinate [Toprol Xl] 50 mg PO BID 07/02/14 Citalopram Hydrobromide [Celexa] 20 mg PO DAILY 10/15/16 Alprazolam [Xanax] 0.25 mg PO BID PRN #30 tablet 10/18/16 Apixaban [Eliquis] 5 mg PO BID #60 tab 10/18/16 Hydrochlorothiazide 12.5 mg PO DAILY #30 tablet 10/18/16 Hydrocodone Bit/Acetaminophen [[place] 5-325] 1 tab PO BEDTIME #30 tab 10/18/16 Lisinopril [Zestril] 40 mg PO BID #60 tablet 10/18/16 Disposition Discussed With: Patient, Family
[2017-02-27] MEDS ORDERED: XANAX PO PRN (14:14)
[2017-02-27] MEDS ORDERED: ROCEPHIN ONE (15:17)
[2017-02-27] MEDS: SODIUM CHLORIDE 1,000 ML IV SCH (15:24)
[2017-02-27] MEDS: ROCEPHIN 1 GM in SODIUM CHLORIDE 50 ML IV SCH (15:24)
[2017-02-27 15:38] VITALS: BMI 26.9
[2017-02-27] MEDS: ELIQUIS PO SCH (20:22)
[2017-02-27] MEDS: TOPROL XL PO SCH (20:23)
[2017-02-27] MEDS: ZESTRIL PO SCH (20:23)
[2017-02-27] MEDS ORDERED: NORCO 5-325 PO SCH (21:00)
[2017-02-28] MEDS: SODIUM CHLORIDE 1,000 ML IV SCH ×2 (01:49→05:14)
[2017-02-28 04:55] LABS: BASOPHILS % (AUTO) 0.5 % (0.0-3.0); EOSINOPHILS # (AUTO) 0.1 K/ul (0.0-0.7); EOSINOPHILS % (AUTO) 2.3 % (0.0-7.0); HEMATOCRIT 34.9 % (37.0-47.0); HEMOGLOBIN 11.9 g/dl (12.0-16.0); IMMATURE GRANULOCYTE % (AUTO) 0.5 % (0.0-5.0); LYMPHOCYTES # (AUTO) 1.5 K/uL (0.60-3.4); LYMPHOCYTES % (AUTO) 39.4 (10.0-50.0); MEAN CORPUSCULAR HGB CONC 34.1 (31.8-35.4); MEAN CORPUSCULAR VOLUME 87.9 fl (81.0-99.0); MONOCYTES # (AUTO) 0.4 K/uL (0.4-2.0); MONOCYTES % (AUTO) 9.6 (0-10); NEUTROPHILS # (AUTO) 1.8 K/ul (2.0-6.9); NEUTROPHILS % (AUTO) 47.7; PLATELET COUNT 160 10^3/uL (140-440); RED BLOOD COUNT 3.97 10^6/ul (4.20-5.40); WHITE BLOOD COUNT 3.86 K/ul (4.6-10.2)
[2017-02-28 05:15] LABS: ALBUMIN 3.3 g/dL (3.4-5.0); ALBUMIN/GLOBULIN RATIO 1.32; ANION GAP 9.9; BILIRUBIN,TOTAL 0.67 mg/dL (0.00-1.20); BUN/CREATININE RATIO 13.15; CREATININE 0.76 mg/dL (0.60-1.30); POTASSIUM 3.9 mmol/L (3.5-5.10); TOTAL PROTEIN 5.8 g/dL (5.8-8.1)
[2017-02-28] MEDS ORDERED: ASPIRIN EC PO SCH (08:00)
[2017-02-28] MEDS: ROCEPHIN 1 GM in SODIUM CHLORIDE 50 ML IV SCH (08:18)
[2017-02-28] MEDS: ELIQUIS PO SCH (08:18)
[2017-02-28] MEDS: TOPROL XL PO SCH (08:19)
[2017-02-28] MEDS: ZESTRIL PO SCH (08:19)
[2017-02-28] MEDS ORDERED: MIRALAX PO SCH (09:00)
[2017-02-28] MEDS ORDERED: HYDROCHLOROTHIAZIDE PO SCH (09:00)
[2017-02-28] MEDS ORDERED: CELEXA PO SCH (09:00)
[2017-02-28 10:13] VITALS: BP 130/79; TEMP 97.7
--- NOTE | 2017-03-22 15:04 | PN ---
DATE OF SERVICE: 02/27/17 SUBJECTIVE: Dizziness and almost fell down. This is a 71 year old female who has a history of atrial fibrillation and was driving with her boyfriend in [place]. While driving, she suddenly felt extremely weak, tired and almost passing out. She went home and started taking rest. By the next day, the patient was still feeling weak, dizzy every time she moves her head or gets up. She came to the emergency room for the evaluation and was seen by Dr. Faith in the emergency room. CBC and CMP was normal. UA showed nitrites negative. Leukocyte esterase trace, 3+ bacteria. CT of the head was negative for the stroke. In view of the patient's risk factors of atrial fibrillation and intractable dizziness and the patient was not able to walk, the patient was admitted to Observation. REVIEW OF SYSTEMS: CONSTITUTIONAL: Dizziness, weakness. No fever, no chills. HEENT: Normal. ENDOCRINE: No weight gain, no weight loss. CVS: No angina symptoms. No CHF symptoms. No palpitations. No atypical chest pain for CAD. No shortness of breath. No PND, no orthopnea. RESPIRATORY: No cough, no hemoptysis. GI: No nausea, no vomiting. No abdominal pain. : No hematuria. No polyuria. MUSCULOSKELETAL:. No joint swelling. PSYCHIATRIC: Not anxious. No depression. No suicidal thoughts. No homicidal thoughts. SKIN: Intact. No rash. PHYSICAL EXAMINATION: V/S: Blood pressure 177/92, respiratory rate 20, heart rate 78, temperature 98.9. HEENT: Normocephalic, atraumatic. Mucosa dry. NECK: Supple. No JVD, no carotid bruit. No lymphadenopathy. LUNGS: Clear to auscultation. No rales or rhonchi. HEART: Irregular. No murmur, gallop or regurgitation. ABDOMEN: Soft, nontender. Bowel sounds active. No rigidity. No rebound or guarding. No CVA tenderness. EXTREMITIES: No clubbing, cyanosis or pedal edema. MUSCULOSKELETAL: No joint swelling. NEUROLOGIC: Awake, alert, oriented times three. No focal deficit. LYMPHATIC: No lymph nodes palpable. SKIN: Intact. ASSESSMENT: 1. DIZZINESS 2. HYPERTENSION, UNCONTROLLED 3. HISTORY OF ATRIAL FIBRILLATION ON ELIQUIS 4. URINARY TRACT INFECTION 5. DEPRESSION 6. OSTEOARTHRITIS 7. ANXIETY DISORDER 8. HEAT EXHAUSTION PLAN: 1. Admit patient for the Observation. 2. IV fluids. 3. Continue home medications. 4. Will follow up with the patient in daily rounds. 5. Rocephin 1 gram daily. TIME SPENT: More than 70 minutes today. MTDD
--- NOTE | 2017-03-22 15:11 | PN ---
DATE OF SERVICE: 02/28/17 SUBJECTIVE: The patient was admitted with heat exhaustion and urinary tract infection. The patient's sister is in the room. The patient is feeling perfectly good. No complaints. No headaches or dizziness and was able to walk in the corridor fine. REVIEW OF SYSTEMS: CONSTITUTIONAL: No fever, no chills. HEENT: Normal. ENDOCRINE: No weight gain, no weight loss. CVS: No angina symptoms. No CHF symptoms. No palpitations. No atypical chest pain for CAD. No shortness of breath. No PND, no orthopnea. RESPIRATORY: No cough, no hemoptysis. GI: No nausea, no vomiting. No abdominal pain. : No hematuria. No polyuria. MUSCULOSKELETAL:. No joint swelling. PSYCHIATRIC: Not anxious. No depression. No suicidal thoughts. No homicidal thoughts. SKIN: Intact. No rash. PHYSICAL EXAMINATION: V/S: Blood pressure 130/79, respiratory rate 18, heart rate 79, temperature 97.7. HEENT: Normocephalic, atraumatic. Mucosa dry. NECK: Supple. No JVD, no carotid bruit. No lymphadenopathy. LUNGS: Bilateral air entry is decreased and clear. No rales or rhonchi. HEART: S1, S2 normal. No S3. No murmur, gallop or regurgitation. ABDOMEN: Soft, nontender. Bowel sounds active. No rigidity. No rebound or guarding. No CVA tenderness. EXTREMITIES: No clubbing, cyanosis or pedal edema. MUSCULOSKELETAL: No joint swelling. NEUROLOGIC: Awake, alert, oriented times three. No focal deficit. LYMPHATIC: No lymph nodes palpable. SKIN: Intact. LABS: Hemoglobin 11.9, hematocrit 34.9, platelet count 167, sodium 142, potassium 3.9, chloride 106, bicarb 30, BUN 10, creatinine 0.76, glucose is 94. ASSESSMENT: 1. HEAT EXHAUSTION 2. DIZZINESS 3. HYPERTENSION 4. ATRIAL FIBRILLATION ON ELIQUIS 5. URINARY TRACT INFECTION PLAN: 1. Discharge the patient home. 2. Antibiotics of Cipro 250 mg twice a day. 3. Increase hydration and Probiotics. 4. Increase hydration while in the sun. 5. Heat exhaustion and prevention were discussed with the patient in detail. TIME SPENT: More than 30 minutes MTDD
--- NOTE | 2017-04-01 14:40 | SSS ---
DATE OF SERVICE: 02/27/17 AND 02/28/17 CHIEF COMPLAINT: Dizziness. HISTORY OF PRESENT ILLNESS: The patient came to the emergency room because of the dizziness. The patient stated that yesterday at approximately 2 p.m., date of service is February 27. At 2 o'clock she went outside and was working in the lawn. She came inside the house and after that she started to get up and she was sweaty, dizzy, nauseated and she tried to take a rest. She woke up the next morning, on the day of admission and still was with the room spinning and was not feeling good and almost passing out. She came to the emergency room and was seen by Dr. Faith. EKG was atrial fibrillation and hypertension with a blood pressure of 177/92. Initial blood work showed mild dehydration. CT of the head did not show any stroke. At that time, the patient was admitted to the hospital for observation and rehydration. PAST MEDICAL HISTORY: History of atrial fibrillation. The patient is being followed by Dr. Solorzano in [place]. Mitral valve prolapse Hypertension GERD Diverticulosis Osteoarthritis History of liver infection in the past Depression Anxiety PAST SURGICAL HISTORY: Cataract surgery History of liver biopsy PERSONAL HISTORY: Does not smoke or drink. and lives by herself. FAMILY HISTORY: Significant for bilateral breast cancer. ALLERGIES: Allergic to Codeine, iodinated contrast, oral and IV dye. HOME MEDICATIONS: Aspirin 81 mg daily Metoprolol 50 mg twice daily Celexa 20 mg daily [place] 5/325 mg at bedtime Apixaban 5 mg twice daily Hydrochlorothiazide 12.5 mg daily Lisinopril 40 mg twice daily Alprazolam 0.25 mg twice daily prn MiraLAX 17 gm daily LABS: Sodium 140, potassium 3.9, chloride 106, bicarb 30, BUN 10, creatinine 0.76, glucose 94, white count 3.86, hemoglobin 11.9, hematocrit 34.9, platelet count [address] of the head is negative. REVIEW OF SYSTEMS: CONSTITUTIONAL: No night sweats. Weakness, tiredness. No fever or chills. HEENT: Eyes: No visual changes. No eye pain. No eye discharge. ENT: No runny nose. No epistaxis. No sinus pain. No sore throat. No odynophagia. No ear pain. No congestion. RESPIRATORY: No cough, no congestion. No hemoptysis. No shortness of breath. CARDIOVASCULAR: No angina symptoms. No CHF symptoms. No atypical chest pain for CAD. No palpitations. No orthopnea. GASTROINTESTINAL: No abdominal pain. No nausea or vomiting. No diarrhea or constipation. No hematemesis. No hematochezia. GENITOURINARY: No dysuria. No hematuria. No obstructive symptoms. No discharge. No pain. No significant abnormal bleeding. MUSCULOSKELETAL: No musculoskeletal pain. No joint swelling. NEUROLOGICAL: Dizziness, lightheadedness. Awake, alert, oriented to time, place and person. No headache. No neck pain. No syncope. No seizures. PSYCHIATRIC: Not anxious. No depression. No suicidal thoughts. No homicidal thoughts. SKIN: No rash. No lesions. No wounds. ENDOCRINE: No unexplained weight loss. No weight gain. HEMATOLOGIC/LYMPHATIC: No anemia. No purpura. No petechiae. No prolonged or excessive bleeding. No palpable lymph nodes. PHYSICAL EXAMINATION: VITAL SIGNS: Blood pressure 130/79, temperature 97.7, respiratory rate 18, pulse rate 79, saturation 97. HEENT: Head normocephalic, atraumatic. Eyes: Extraocular muscles are intact. Pupils are equal, round and reactive to light and accommodation. Ears: No lesions. Nose appeared normal. Throat: No exudate or erythema. NECK: Supple. No JVD, no carotid bruit. No lymphadenopathy or thyromegaly. LUNGS: Clear to auscultation. Percussion note normal. Chest symmetrical. HEART: S1, S2, no S3. No murmurs. No cyanosis or clubbing. No ascites. Pulses: Dorsalis pedis and posterior tibial pulses +1 to +2 both sides. ABDOMEN: Soft. Nontender. Bowel sounds active. No CVA tenderness. No mass felt. EXTREMITIES: No edema. Full range of motion of all extremities, equal. NEUROLOGIC: No focal deficit. Cranial nerves II through XII are grossly intact. No headache, no double vision or headache. SKIN: Not dry. Intact. Turgor - normal. LYMPHATIC: No palpable lymph nodes/no lymphedema. MUSCULOSKELETAL: Normal joints with no swelling. Muscle tone is normal. Old/present records reviewed Office records reviewed. BRIEF HOSPITAL COURSE: The patient was admitted to the hospital and started on IV fluids. Home medications were continued. Xanax continued. Started feeling better and by the next day the patient was up and about and did not have any problems. Blood pressure had been normalized. No more dizziness. She was able to walk fine. At that time, the patient is discharged to home. FINAL DIAGNOSES: 1. HEAT EXHAUSTION 2. NEAR SYNCOPE 3. DIZZINESS 4. ATRIAL FIBRILLATION 5. HYPERTENSION 6. DJD OF THE SPINE 7. DEPRESSION 8. ANXIETY 9. HISTORY OF RECURRENT UTI PLAN: 1. Discharge the patient home. 2. Cipro 250 mg twice a day for urinary tract infection. 3. Increase hydration and probiotics. 4. Take the medications with food. 5. Follow up at the [facility] within four to five days. TIME SPENT: More than 55 minutes. DARIO
== END 2017-02-28 13:15 | disposition home or self-care (01) | DRG 923 ==
LOC: ED 11:58 → MEDSURG A 14:21
PROVIDERS: ADMIT Emergency Medicine; ATTEND Emergency Medicine
DX: T67.5XXA Heat exhaustion, unspecified, initial encounter (principal); N39.0 Urinary tract infection, site not specified; R55 Syncope and collapse; R42 Dizziness and giddiness; R11.0 Nausea; I48.91 Unspecified atrial fibrillation; I10 Essential (primary) hypertension; F41.8 Other specified anxiety disorders; Z87.440 Personal history of urinary (tract) infections; Z79.01 Long term (current) use of anticoagulants; Z79.899 Other long term (current) drug therapy
CPT/HCPCS: 36415; 80053; 81001; 82550; 84484; 85025; 87086; 87186; 93005; 93010; 96360; 99223; 99239; 99284

== ENCOUNTER 2017-03-18 12:50 | Outpatient (CLI) ==
--- NOTE | 2017-03-19 09:10 | MAMMO ---
EXAM: Digital screening mammogram HISTORY: Screening COMPARISON: 09/24/2015 FINDINGS: Digital MLO and CC views of the right and left breast were performed. Computer aided det ection was utilized. There are scattered fibroglandular densities. There are benign and vascular bi lateral calcifications. There is no evidence for mass, asymmetry, distortion, or suspicious calcific ations in either breast. IMPRESSION: 1. No evidence of malignancy in the right or left breast. 2. Annual screening mammogram is recommended in one year. BIRADS category 2, benign
== END 2017-03-18 12:51 | disposition home or self-care (01) ==
LOC: RAD 12:50
PROVIDERS: ATTEND Emergency Medicine
DX: Z12.31 Encounter for screening mammogram for malignant neoplasm of breast (principal)
CPT/HCPCS: 77067

== ENCOUNTER 2017-11-24 08:10 | Emergency (ER) ==
[2017-11-24 08:22] VITALS: BP 185/97; TEMP 97.7; BMI 26.6
--- NOTE | 2017-11-24 08:55 | CT ---
EXAM: CT head without contrast HISTORY: Head pain COMPARISON: CT head 02/27/2017 and 10/15/2016 TECHNIQUE: Serial axial images of the brain were obtained from the skull base to the vertex without IV contrast. FINDINGS: The ventricles, cisterns and sulci demonstrate mild generalized volume loss. The lizarraga-whi te matter junction is maintained. There is mild scattered low attenuation in the periventricular whi te matter. There are calcifications along the anterior midline falx.No midline shift or mass is iden tified. There is no abnormal intra or extra-axial fluid collection. The paranasal sinuses and masto id air cells are clear. The osseous calvarium is intact. IMPRESSION: 1. No acute intracranial abnormality or hemorrhage. 2. Generalized volume loss and microangiopathy.
[2017-11-24] MEDS ORDERED: DILAUDID IM STA (09:23)
--- NOTE | 2017-11-24 10:02 | ED.PDOC ---
General ED Provider: Dr. HARPAL BYERS Chief Complaint: Hypertension Stated Complaint: HYPERTENSION Time Seen by Physician: 08:14 Mode of Arrival: Walk-In Information Source: Patient Exam Limitations: No limitations [facility] and Triage Documentation Reviewed and Agree: Yes Reviewed sepsis parameters & appropriate labs ordered?: Yes System Inflammatory Response Syndrome: Not Applicable Sepsis Protocol: For patient's 13 years and over: Temp is 96.8 and below OR 101 and greater Pulse >90 BPM Resp >20/minute Acutely Altered Mental Status Are patient's symptoms suggestive of a new infection, such as: -Pneumonia -Skin, Soft Tissue -Endocarditis -UTI -Bone, Joint Infection -Implantable Device -Acute Abdominal Infection -Wound Infection -Meningitis -Blood Stream Catheter Infection -Unknown System Inflammatory Response Syndrome: Not Applicable Cardiovascular Complaint Exam - Hypertension Complaint/Exam Onset/Duration: TODAY HAS HEADACHE Symptoms Are: Still present Timing: Constant Reported B/P Prior to Arrival: 180/100 Aggravating: Reports: None Alleviating: Reports: None Associated Signs and Symptoms: Denies: Chest pain, Vision changes, Anxiety, Recent stress, Headache, Numbness, Tingling, Weakness, Dizziness, Short of air, Swelling Related Surgical History: Reports: None Cardiac Risk Factors: Reports: Hypertension Recent Change in Medications: No A/V Nicking: No Papilledema Present: No JVD Present: No Carotid Bruit Present: No Femoral Pulses Bounding: No Differential Diagnoses: Hypertension Review of Systems - Review Of Systems Constitutional: Reports: No symptoms Eyes: Reports: No symptoms Ears, Nose, Mouth, Throat: Reports: No symptoms Respiratory: Reports: No symptoms Cardiac: Reports: No symptoms GI: Reports: No symptoms : Reports: No symptoms Musculoskeletal: Reports: No symptoms Skin: Reports: No symptoms Neurological: Reports: Headache Endocrine: Reports: No symptoms Hematologic/Lymphatic: Reports: No symptoms All Other Systems: Reviewed and Negative Past Medical History - Past Medical History Previously Healthy: Yes Endocrine: Reports: Other Cardiovascular: Reports: A-Fib Respiratory: Reports: Other Hematological: Reports: Unknown Gastrointestinal: Reports: Unknown Genitourinary: Reports: Unknown Neuro/Psych: Reports: Unknown Musculoskeletal: Reports: Unknown Cancer: Reports: Unknown Last Menstrual Period: N/A - Surgical History General Surgical History: Reports: Unknown - Family History Family History: Reports: Unknown - Social History Smoking Status: Former smoker Hx Substance Use: No Alcohol Screening: None Physical Exam - Physical Exam Appearance: Well-appearing, No pain distress, Well-nourished Eyes: SLICK, EOMI, Conjunctiva clear ENT: Ears normal, Nose normal, Oropharynx normal Respiratory: Airway patent, Breath sounds clear, Breath sounds equal, Respirations nonlabored Cardiovascular: RRR, Pulses normal, No rub, No murmur GI/: Soft, Nontender, No masses, Bowel sounds normal, No Organomegaly Musculoskeletal: Normal strength, ROM intact, No edema, No calf tenderness Skin: Warm, Dry, Normal color Neurological: Sensation intact, Motor intact, Reflexes intact, Cranial nerves intact, Alert, Oriented Psychiatric: Affect appropriate, Mood appropriate Critical Care Note - Critical Care Note Total Time (mins): 0 Course - Course Hematology/Chemistry: 11/24/17 08:45 11/24/17 08:45 Orders, Labs, Meds: Lab Review 11/24/17 11/24/17 08:45 08:45 WBC 5.58 RBC 4.12 L Hgb 12.6 Hct 36.4 L MCV 88.3 MCH 30.6 MCHC 34.6 RDW Coeff of Noemi 12.7 Plt Count 151 Immature Gran % (Auto) 0.4 Neut % (Auto) 77.1 Lymph % (Auto) 14.2 Wood % (Auto) 7.0 Eos % (Auto) 1.1 Baso % (Auto) 0.2 Immature Gran # (Auto) 0.0 Neut # (Auto) 4.3 Lymph # (Auto) 0.8 Wood # (Auto) 0.4 Eos # (Auto) 0.1 Baso # (Auto) 0.0 Sodium 140 Potassium 3.7 Chloride 105 Carbon Dioxide 24 Anion Gap 14.7 BUN 8 Creatinine 0.74 Estimated GFR (MDRD) 77.00 BUN/Creatinine Ratio 10.81 Glucose 119 H Calcium 9.4 Total Bilirubin 1.1 AST 30 ALT 29 Alkaline Phosphatase 80 Total Protein 6.6 Albumin 3.8 Globulin 2.8 Albumin/Globulin Ratio 1.36 Orders Category Date Time Status CBC W/ AUTO DIFF Stat LAB 11/24/17 08:45 Completed COMPREHENSIVE METABOLIC PANEL Stat LAB 11/24/17 08:45 Completed Hydromorphone HCl [Dilaudid] MEDS 11/24/17 09:23 Discontinued 0.5 mg IM ONCE STA CT HEAD W/O CONTRAST Stat RADS 11/24/17 08:19 Completed Medications Discontinued Medications Generic Name Dose Route Start Last Admin Trade Name Estela PRN Reason Stop Dose Admin Hydromorphone HCl 0.5 mg 11/24/17 09:23 11/24/17 09:38 Dilaudid IM 11/24/17 09:24 0.5 mg ONCE STA Administration Vital Signs: Temp Pulse Resp BP Pulse Ox 11/24/17 08:11 97.7 F 71 16 185/97 H 95 OSMNI Risk Score OSMIN Risk Score: Risk Score Odds of by 30D 0 0.1 (0.1-0.2) 1 0.3 (0.2-0.3) 2 0.4 (0.3-0.5) 3 0.7 (0.6-0.9) 4 1.2 (1.0-1.5) 5 2.2 (1.9-2.6) 6 3.0 (2.5-3.6) 7 4.8 (3.8-6.1) Departure - Departure Time of Disposition: 10:01 Disposition: HOME SELF-CARE Discharge Problem: HTN (hypertension) Qualifiers: Hypertension type: unspecified Qualified Code(s): I10 - Essential (primary) hypertension Headache Qualifiers: Headache type: unspecified Headache chronicity pattern: unspecified pattern Instructions: Hypertension (ED), Acute Headache (DC) Condition: Good Pt referred to PMD for follow-up: Yes IPMP verified?: No Additional Instructions: Please call your Family Physician as soon as possible to schedule a follow-up appointment. Allergies/Adverse Reactions: Allergies codeine Adverse Reaction (Verified 11/24/17 08:16) Iodinated Contrast- Oral and IV Dye Adverse Reaction (Verified 11/24/17 08:16) Home Medications: Ambulatory Orders Aspirin [Ecotrin] 81 mg PO DAILY 07/02/14 Alprazolam [Xanax] 0.25 mg PO BID PRN #30 tablet 10/18/16 Apixaban [Eliquis] 5 mg PO BID #60 tab 10/18/16 Lisinopril [Zestril] 40 mg PO BID #60 tablet 10/18/16 Hydrocodone/Acetaminophen [Hydrocodon-Acetaminoph 7.5-300] 1 each PO BID PRN PRN 05/07/17 Disposition Discussed With: Patient
== END 2017-11-24 10:11 | disposition home or self-care (01) ==
LOC: ED 08:10
DX: I10 Essential (primary) hypertension (principal); R51 Headache; Z79.899 Other long term (current) drug therapy
CPT/HCPCS: 36415; 80053; 85025; 96372; 99283

== ENCOUNTER 2018-02-08 12:56 | Outpatient (CLI) ==
--- NOTE | 2018-02-08 18:20 | MRI ---
EXAM: MRI of the left knee without contrast COMPARISON: None available. HISTORY: Left knee pain. TECHNIQUE: Multiplanar noncontrast MR images of the left knee were acquired using a 1.2 Marta magnet . Several sequences are moderately limited by patient motion artifact, overall limiting anatomic det ail. The axial sequence was repeated though remains motion limited. FINDINGS: There is markedly diminished size of the medial meniscus from the level of the body throug h the posterior horn related to extensive degenerative type tear with radial component involving the free edge extending peripherally at that level. Irregularity of the free edge as well as the superio r and inferior articular surfaces of the meniscal remnant with peripheral superior articular surface flap at the level of the posterior horn/root remnant. Extrusion of the body related to loss of hoop containment. Free edge flap at the level the posterior horn/root. There is intrasubstance degeneration of the lateral meniscus without a discrete surfacing tear. There is inversion recovery hyperintense signal along the anterior cruciate ligament thinning ligamen t fibers related mucoid degeneration versus previous sprain/partial tear with residual intact fibers identified. Chronic sprain with scarring of the posterior cruciate ligament with intact fibers. Spr ain/partial tear of the medial collateral ligament. The lateral collateral ligament and posterolater al corner ligaments are intact. Mild patellar/quadriceps tendinosis. Thinning of the medial patella r retinaculum complex related previous injury. Subcutaneous edema anteriorly and medially. No abnor mal subluxation of the patella. There are marginal osteophytes in all three components of the knee. Moderate thinning and irregularit y of the cartilage of both sides of the joint in the patellofemoral compartment with mild thinning of the cartilage in the lateral compartment. Extensive full-thickness cartilage defects on both sides of the joint and the medial compartment with subchondral edema/cystic change/sclerosis articular surf brina remodeling. No evidence of an acute fracture. Moderate joint effusion which is nonspecific. No popliteal cyst. IMPRESSION: 1. Motion limited study as described. 2. Complex degenerative type tear of the medial meniscus with flap formation as described. Extrusio n of the body related to loss of hoop containment. 3. Tricompartmental osteoarthrosis with most severe changes in the medial compartment. 4. Mucoid degeneration versus sequela of a sprain/partial tear of the anterior cruciate ligament inta ct ligament fibers clearly identified. Chronic sprain with scarring of the posterior cruciate ligame nt. Sprain/partial tear of the medial collateral ligament. 5. Mild patellar/quadriceps tendinosis. Old injury of the medial patellar retinaculum complex witho ut abnormal subluxation of the patella. Subcutaneous edema anteriorly and medially.
--- NOTE | 2018-02-09 07:55 | MRI ---
EXAM: Lumbar spine MRI without contrast. HISTORY: Low back pain. COMPARISON: Lumbar spine CT scan 05/14/2015. TECHNIQUE: Multiplanar, multisequence MR images were acquired lumbar spine without contrast. FINDINGS: Conus medullaris ends at L1-2 and has normal morphology and signal intensity. Five non-ri b-bearing lumbar vertebra are present. There is minor mid lumbar dextroscoliosis centered at L3-4 an d there is 2 mm degenerative anterolisthesis of L3 on L4 and L4 on L5. The lumbar vertebra are arsalan l in height and intrinsic bone marrow signal. Marginal osteophytes are present in the lumbar spine a nd bridging left anterolateral osteophytes are present at T11-12 and T12-L1. There is desiccation of the lumbar intervertebral discs and mild disc space narrowing at L5-S1. There is osteoarthritis of the posterior spinous processes at L1-2 which has minor bright STIR signal along the osteophytes with irregularity of the cortex that raises the possibility of Baastrup's phenomenon. There is a posterio r spinous process osteoarthritis at L2-3 and L3-4. The partially visualized liver, spleen and both kidneys are unremarkable. There are no paravertebral masses. Descending and sigmoid colonic diverticula are present without diverticulitis. Mild fatty atrophy is present in the medial posterior paraspinous muscles from L2 to the sacrum and in the multi fidus muscle. L1-2: There is a trace retrolisthesis of L1 on L2 which produces a minor spondylotic disc bulge with out central canal stenosis. There is mild right foraminal stenosis. L2-3: There is a mild diffuse disc bulge and bilateral hypertrophic facet arthropathy and ligamentum flavum hypertrophy. This causes minor left neural foraminal stenosis. There is no central canal st enosis. L3-4: There is anterolisthesis of L3 on L4 due to moderate bilateral hypertrophic facet arthropathy and ligamentum flavum hypertrophy and there is a mild disc bulge that is asymmetric to the left which narrows the inferior left neural foramen. These findings cause triangulation of the thecal sac and m ild bilateral foraminal stenosis. L4-5: There is a mild diffuse disc bulge that is greatest left posteriorly. Moderate bilateral hype rtrophic facet arthropathy and ligamentum flavum hypertrophy is present. This causes mild to moderat e bilateral foraminal stenosis. There is no central canal stenosis. L5-S1: There is a minor disc bulge and mild bilateral facet arthropathy and ligamentum flavum hypert rophy, greater on the right. This causes minor bilateral foraminal stenosis. There is no central ca nal stenosis. IMPRESSION: 1. Mild lumbar degenerative spondylosis. 2. 2 mm degenerative anterolisthesis L3 on L4 and L4 on L5 due to moderate bilateral hypertrophic fa cet arthropathy. 3. No lumbar disc herniations, pars interarticularis defects or central canal stenosis. 4. Colonic diverticulosis without diverticulitis.
== END 2018-02-08 12:57 | disposition home or self-care (01) ==
LOC: RAD 12:56
PROVIDERS: ATTEND Internal Medicine
DX: M25.562 Pain in left knee (principal); M54.9 Dorsalgia, unspecified

== ENCOUNTER 2018-03-10 09:00 | Outpatient (RCR) ==
--- NOTE | 2018-03-09 09:08 | RS.OPPTEV2 ---
Date of Note: 03/08/18 Visit #: 1 Date of Evaluation: 03/08/18 Payer Source: MEDICARE Surgery Performed?: No Treatment Diagnosis: OA of knees History of Condition/Mechanism of Injury:: pt states pain began in 2012. States is getting worse and now sometimes has excruciating pain with weight bearing. States MD reports B knees are "bone on bone" and states she is going to begin receiving injections for her low back soon. Prior Level of Function.....Patient was independent with: ADL's, Self Care, Ambulation/Mobility, Community Integration/Access Functional Limitations: Sleep, Lifting, Carrying, Standing, Squatting, Ambulation, Community Access/Integration Current Subjective/complaints:: pt states that she is having terrible pain in B knees with every step she takes. States she does not have a return appt with MD , however feels she needs to make one. pt states she has a rolling wx at home that her son gave her, she is not sure if she should use it or not. Treatment Side (optional): Bilateral *Precautions: n/a Medical History Medical History: Hypertension, Arthritis Medical History Comments:: osteoporosis, Afib, h/o liver inflammation. Surgical History Comments:: biopsy of breast Smoking Status: Former smoker Diagnostic Testing/Imaging:: MRI L knee 02/08/18: complex degenerative type tear of medial meniscus, tricompartmental osteoarthrois with most severe changes in medial compartment, mucoid degeneration vs sequela of a sprain/partial tear of ACL, mild patellar/quadriceps tendinosis Hx Home Medications: hydrocodone, myrbetriq ER, enoxaparin, HCTZ, ketorolac, prednisolone, ofloxacin, Patient's Goals: decrease LBP Pain Assessment - Pain Description Pain Location: B knee Pain Description: Sharp, Aching, Chronic Current Pain Intensity: 6-7/10 at rest increases to 10/10 with amb Functional Outcome Measure UE Functional Index: 27 - G Codes & Severity Modifier G Codes & Modifier: mobility: walking and moving around: current CL. mobility walking and moving around: goal CJ Source of G Code score: LE functional scale Observation - Observation Inspection: pt with genu varus deformity B LE. pt also c/o pain in lumbar spine , upon exam pt with tightness in B piriformis. Posture: Forward Head, Rounded Shoulders Gait - Gait Pattern General Gait Pattern Observation: Antalgic Gait Gait Comments: pt amb with decreased heel strike, decreased knee flex, with antalgic gait. pt amb then with rwx with decreased antalgic pattern. pt does appear to have increased safety with rwx. pt states she has a rollator at home and plans to begin using for longer distances. General Range of Motion: BUE WFL's. BLE hip and ankle WFL's Muscle Strength: BUE 5/5. BLE hip flex hip flex 4+/5, ankle DF/PF 4+/5 - Left Knee ROM Left Knee Extension: -15 Left Knee Flexion: 115 Knee ROM Limitations: Soft Tissue Tightness, Muscle Weakness, Pain - Right Knee ROM Right Knee Extension: -15 Right Knee Flexion: 110 Knee ROM Limitations: Soft Tissue Tightness, Muscle Weakness, Pain - Left Knee Strength Left Knee Extension: 4 Good Left Knee Flexion: 4 Good - Right Knee Strength Right Knee Extension: 4 Good Right Knee Flexion: 4 Good - Special Tests Knee Anterior Drawer Test: Positive Left Knee Posterior Drawer Test: Negative Left, Negative Right Knee Valgus Stress Test: Negative Left, Negative Right Knee Varus Stress Test: Positive Left, Positive Right Patella Apprehension Test: Negative Left, Negative Right Patellar Compression Test: Negative Left, Negative Right Palpation Palpation Findings: Tenderness Comments:: tenderness noted at B knee joint line Sensation - Sensation Right Upper Extremity: Intact/Normal Left Upper Extremity: Intact/Normal Right Lower Extremity: Impaired (pt with n/t R foot at times with radicular pain into RLE) Left Lower Extremity: Intact/Normal Balance - Sitting Balance Static Sitting Balance: Normal Dynamic Sitting Balance: Normal - Standing Balance Static Standing Balance: Good Dynamic Standing Balance: Fair - Comments Balance Assessment Comments: pt with increased lat sway, decreased dyn stand balance due to decreased ROM and strength in BLE. - Heat/Cryotherapy Treatment: Cryotherapy Comments:: B knees Interventions - Exercise/Activities/Manual Therapy Exercises/Activities: pt performed BLE QS, SLR, hip abd/add, SAQ, hamstring stretch, piriformis stretch Total minutes of Exercise: 11 Manual Therapy: n/a HOME EXERCISE PROGRAM: pt given written HEP including QS, SLR, hip abd/add, SAQ , hamstring stretch, piriformis stretch. - Charges Timed Code Treatment Minutes: 49 Total Treatment Time: 55 Procedures billed for this date of service:: eval med, ex EVALUATION COMPLEXITY LEVEL EVALUATION COMPLEXITY LEVEL: HISTORY: Medium (HTN,OA, osteoporosis, afib), EXAM OF BODY SYSTEMS: Medium (strength, ROM, pain, gait,), CLINICAL PRESENTATION: Medium (evolving), CLINICAL DECISION MAKING: Medium Assessment Assessment: pt presents with crepitis, decreased ROM, pain, decreased balance and gait difficulty due to OA B knees. 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 Goal #1: pt with improved ROM B knee flex 120 ext -5 Goal to be met by: 04/05/18 Goal #2: pt amb community distances w/wo AD with improved sequencing, decreased pain Goal to be met by: 04/05/18 Goal #3: Improve BLE strength 4+ to 5/5 Goal to be met by: 04/05/18 Goal #4: 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 Goal to be met by: 04/05/18 Plan - Treatment to be Provided Procedures: Therapeutic Exercises, Therapeutic Activity, Gait Training, Manual Therapy, Patient Education Modalities: Electrical Stimulation, Ultrasound/Phonophoresis, Cryotherapy, Hot Packs - Treatment Plan Frequency: 2 X week Duration: 4 weeks ORDER # VISITS AND/OR THROUGH DATE: 04/05/18 - Treatment Code (1) Bilateral knee pain Code(s): M25.561 - PAIN IN RIGHT KNEE Qualifiers: Chronicity: chronic Qualified Code(s): M25.561 - Pain in right knee; M25.562 - Pain in left knee; G89.29 - Other chronic pain (2) Decreased range of motion (ROM) of knee Qualifiers: Laterality: bilateral Qualified Code(s): M25.661 - Stiffness of right knee , not elsewhere classified; M25.662 - Stiffness of left knee, not elsewhere classified (3) Osteoarthritis Code(s): M19.90 - UNSPECIFIED OSTEOARTHRITIS, UNSPECIFIED SITE Qualifiers: Osteoarthritis location: knee Osteoarthritis type: primary Laterality: bilateral Qualified Code(s): M17.0 - Bilateral primary osteoarthritis of knee
--- NOTE | 2018-03-10 13:15 | RS.OPPTDN ---
Subjective Date of Note: 03/10/18 Visit #: 2 Date of Evaluation: 03/08/18 Payer Source: MEDICARE Treatment Diagnosis: OA of knees Current Subjective/complaints:: Patient reports bilateral knee pain that limits her mobility and walking. *Precautions: n/a Pain Assessment - Pain Description Pain Location: Bilateral knees Pain Description: Aching Current Pain Intensity: 5/10 - Treatment Modality: Ultrasound Parameters/Method Applied: [id number] total. 7mins to each knee joint at 1.5w/cm2 prior to EX. Patient Position: Supine - Heat/Cryotherapy Treatment: Hot Pack ([id number] to each knee at end of treatment. Patient in sitting. ) Interventions - Exercise/Activities/Manual Therapy Exercises/Activities: Performs bilateral quad sets but needs constant cues and is having difficulty with proper muscle contraction. Assisted hamstring and piriformis stretching. SLR, hip abd/add. SAQ. Isometric hip add and isometric ankle inversion/hip IR, both with small ball. Patient education of dx, joint mechanics, and HEP. Patient given copies of HEP. Total minutes of Exercise: 24mins Manual Therapy: n/a HOME EXERCISE PROGRAM: pt given written HEP including QS, SLR, hip abd/add, SAQ , hamstring stretch, piriformis stretch. - Charges Timed Code Treatment Minutes: 38mins Total Treatment Time: 53mins Procedures billed for this date of service:: US, EX2, HP Assessment: Patient having difficulty with performing quad sets and needs additional direction of facilitate proper muscle contraction. 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
== END 2018-03-11 23:59 ==
PROVIDERS: ATTEND Orthopaedic Surgery
DX: M17.0 Bilateral primary osteoarthritis of knee (principal); M25.561 Pain in right knee; M25.562 Pain in left knee; G89.29 Other chronic pain; M25.661 Stiffness of right knee, not elsewhere classified; M25.662 Stiffness of left knee, not elsewhere classified

== ENCOUNTER 2018-03-21 06:11 | Day surgery (SDC) ==
[2018-03-21] MEDS: KETOROLAC 0.5% OPTH SOL OP PRN ×2 (06:35→06:50)
[2018-03-21] MEDS: CYCLOGYL 2% OPTH OP PRN ×3 (06:35→06:45)
[2018-03-21] MEDS: TETRACAINE 0.5% UNIT-DOSE OP PRN ×2 (06:35→06:50)
[2018-03-21] MEDS: AK-DILATE 10% OPTH SOL OP PRN ×3 (06:35→06:45)
[2018-03-21] MEDS ORDERED: OCUSOFT LID SCRUB PLUS TP PRN (06:44)
[2018-03-21] MEDS ORDERED: BSS WITH EPINEPHRINE OP ONE (06:44)
[2018-03-21] MEDS ORDERED: DIAMOX PO STA (06:44)
[2018-03-21] MEDS ORDERED: SUBLIMAZE ONE (08:09)
[2018-03-21] MEDS ORDERED: VERSED ONE (08:09)
[2018-03-21] MEDS ORDERED: DIAMOX ONE (09:10)
[2018-03-21 09:20] VITALS: BP 106/58; TEMP 97.6
--- NOTE | 2018-03-22 11:12 | OP ---
PREOPERATIVE DIAGNOSIS: ADVANCED BRUNESCENT CATARACT LEFT EYE. POSTOPERATIVE DIAGNOSIS: SAME. OPERATION PHACOEMULSIFICATION ASPIRATION OF CATARACT LEFT EYE. PLACEMENT OF POSTERIOR CHAMBER LENS. PHACO TIME 52.6 SECONDS AT 8.0% POWER. LENS MODEL TECNIS [id number]. DIOPTER 10.0D. TECHNIQUE: CLEAR CORNEA. ANESTHESIA: TOPICAL ANESTHESIA W/ANESTHESIA MONITORING. OPERATIVE REPORT: Topical anesthesia consisting of Tetracaine was applied to the cornea and Xylocaine Methyl Paraben free of MFP was injected intracamerally into the anterior chamber. The patient was then brought into the operating room , prepped and draped in the usual ophthalmic manner. A lid speculum was placed and the operating microscope was used. A paracentesis was made at the 3 o' clock position. A clear corneal incision was made just out to the limbus. The anterior chamber was entered just inside the clear cornea. Viscoelastic was injected into the anterior chamber. A capsulotomy was performed with a bent # 27 gauge needle. Phacoemulsification was then performed in the posterior chamber. After completion of the phacoemulsification, residual cortical material was aspirated with the irrigation-aspiration system. The posterior capsule was polished. Viscoelastic was injected into the anterior and posterior chambers to inflate the capsular bag. Lens were placed via an Unfolder system and stabilized in the bag. Viscoelastic was removed from the anterior chamber. The wound was checked for any leakage. The four sponges were removed from the fornix. Topical antibiotic steroid and nonsteroidal drops were also applied to the cornea. A Sullivan shield was applied. The patient left the operating room in good condition without any complications. INTRAOPERATIVE MEDICATIONS: Xylocaine Methyl Paraben Free MPF MTDD
== END 2018-03-21 09:15 | disposition home or self-care (01) ==
LOC: SURG 06:11
PROVIDERS: ATTEND Ophthalmology
DX: H25.13 Age-related nuclear cataract, bilateral (principal); H25.012 Cortical age-related cataract, left eye; H35.412 Lattice degeneration of retina, left eye

== ENCOUNTER 2018-04-05 11:00 | Outpatient (RCR) | payer OTHER ==
--- NOTE | 2018-03-15 14:31 | RS.OPPTDN ---
Subjective Date of Note: 03/15/18 Visit #: 3 Date of Evaluation: 03/08/18 Payer Source: MEDICARE Treatment Diagnosis: OA of knees Current Subjective/complaints:: Patient reports continued bilateral knee pain. States she has tried to do more walking which may have aggravated his pain. *Precautions: n/a Pain Assessment - Pain Description Pain Location: bilateral knees Current Pain Intensity: 5-6/10 prior to treatment and exercise. Other Comments regarding Pain:: Following treatment, right knee 4/10 and left knee 4-5/10 - Treatment Modality: Ultrasound Parameters/Method Applied: 14mins total. 7mins to each knee at 1.5w/cm2 prior to EX. Patient Position: Supine - Heat/Cryotherapy Treatment: Hot Pack ([id number] to bilateral knee joints prior to US and EX. Patient in supine. ) Interventions - Exercise/Activities/Manual Therapy Exercises/Activities: Performs bilateral quad sets with small bolster and then towel rolls, she continues to have difficulty and need cues for proper muscle contraction. Assisted hamstring and piriformis stretching. SLR 1 1/2#, hip abd/ add, and 4# SAQ. Isometric hip add and isometric ankle inversion/hip IR, both with small ball. Began working on ham sets, with cues for correct position and muscle engagement. Red theraband for ankle df. Ended with additional hamstring stretching. Patient education of dx, joint mechanics, and HEP. Total minutes of Exercise: 25mins Manual Therapy: n/a HOME EXERCISE PROGRAM: pt given written HEP including QS, SLR, hip abd/add, SAQ , hamstring stretch, piriformis stretch. - Charges Timed Code Treatment Minutes: 39mins Total Treatment Time: 54mins Procedures billed for this date of service:: HP, US, EX2 Assessment: Patient responding to modalities and gentle exercise with reports of reduction in pain. Patient Education: Home Exercise Program, Home Safety, Activity Modification Patient demonstrates compliance with HEP?: Yes Short Term Goals Goal #1: pt with improved B knee ext -10 Goal to be met by: 03/22/18 Progress towards Goal:: Progressing Goal #2: pt amb in dept with improved heel stike, knee flex w/w/o AD Goal to be met by: 03/22/18 Goal #3: pt report pain <8/10 with activity Goal to be met by: 03/22/18 Progress towards Goal:: Progressing Goal #4: pt independent with initial HEP Goal to be met by: 03/22/18 Progress towards Goal:: Partially Met Care Home Goals Goal #1: pt with improved ROM B knee flex 120 ext -5 Goal to be met by: 04/05/18 Goal #2: pt amb community distances w/wo AD with improved sequencing, decreased pain Goal to be met by: 04/05/18 Goal #3: Improve BLE strength 4+ to 5/5 Goal to be met by: 04/05/18 Goal #4: pt report 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
--- NOTE | 2018-03-17 15:51 | RS.OPPTDN ---
Subjective Date of Note: 03/17/18 Visit #: 4 Date of Evaluation: 03/08/18 Payer Source: MEDICARE Treatment Diagnosis: OA of knees Current Subjective/complaints:: Patient reports improvement in bilateral knee pain. States she has been able to walk short distances without increasing pain. She continues to have back pain. *Precautions: n/a Pain Assessment - Pain Description Pain Location: Bilateral knee pain Current Pain Intensity: 6/10 prior to and 5/10 following treatment - Treatment Modality: Ultrasound Parameters/Method Applied: [id number]. US at 1.5w/cm2, 6mins to each knee joint prior to EX. Patient Position: Supine - Heat/Cryotherapy Treatment: Hot Pack ([id number] to bilateral knee joints prior to US and EX. Patient in supine. ) Interventions - Exercise/Activities/Manual Therapy Exercises/Activities: Performs bilateral quad sets with and without towel roll, cues for proper muscle contraction. Assisted hamstring and piriformis stretching. SLR 1 1/2#, hip abd/add, and 4# SAQ. Isometric hip add and isometric ankle inversion/hip IR, both with small ball. Green theraband for ankle df. Ended with additional hamstring stretching. Patient education of dx, joint mechanics, and HEP. Total minutes of Exercise: 19mins Manual Therapy: n/a HOME EXERCISE PROGRAM: pt given written HEP including QS, SLR, hip abd/add, SAQ , hamstring stretch, piriformis stretch. - Charges Timed Code Treatment Minutes: 31mins Total Treatment Time: 51mins Procedures billed for this date of service:: HP, US, EX Assessment: Patient responding to treatment. She continues to have difficulty with good quad contraction. Patient Education: Education of diagnosis, Body/Joint mechanics, Home Exercise Program Patient demonstrates compliance with HEP?: Yes Short Term Goals Goal #1: pt with improved B knee ext -10 Goal to be met by: 03/22/18 Progress towards Goal:: Progressing Goal #2: pt amb in dept with improved heel stike, knee flex w/w/o AD Goal to be met by: 03/22/18 Progress towards Goal:: Progressing Goal #3: pt report pain <8/10 with activity Goal to be met by: 03/22/18 Progress towards Goal:: Partially Met Goal #4: pt independent with initial HEP Goal to be met by: 03/22/18 Progress towards Goal:: Partially Met Auto Parts Handler Goals Goal #1: pt with improved ROM B knee flex 120 ext -5 Goal to be met by: 04/05/18 Goal #2: pt amb community distances w/wo AD with improved sequencing, decreased pain Goal to be met by: 04/05/18 Goal #3: Improve BLE strength 4+ to 5/5 Goal to be met by: 04/05/18 Goal #4: pt report increased ability to perform normal engraver 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
--- NOTE | 2018-03-24 12:12 | RS.OPPTDN ---
Subjective Date of Note: 03/24/18 Visit #: 5 Date of Evaluation: 03/08/18 Payer Source: MEDICARE Treatment Diagnosis: OA of knees Current Subjective/complaints:: Patient reports bilateral knee pain had been much better the last several days, but pain flaired-up yesterday. *Precautions: n/a Pain Assessment - Pain Description Pain Location: bilateral knee joints, back Current Pain Intensity: moderate - Treatment Modality: Ultrasound Parameters/Method Applied: [id number] total. US at 1.5w/cm2, 7mins to each knee joint prior to EX. Patient in sitting. Patient Position: Sitting - Heat/Cryotherapy Treatment: Hot Pack ([id number] to the bilateral knee joints prior to US and EX. Patient in sitting. ) Interventions - Exercise/Activities/Manual Therapy Exercises/Activities: Reduced exercise today due to flair-up of knee pain. Focus on long stretching of the bialteral hamstrings, SKTC, and piriformis. Isometric hip add and isometric ankle inversion with hip IR, both with pillow. SLR no weight today. Continue to work on quad sets and attempted to facilitate a good muscle contraction. Ended with additional hamstring stretching. Patient education of joint mechanics, home safety, and HEP. Total minutes of Exercise: 17mins Manual Therapy: n/a HOME EXERCISE PROGRAM: pt given written HEP including QS, SLR, hip abd/add, SAQ , hamstring stretch, piriformis stretch. - Charges Timed Code Treatment Minutes: 24mins Total Treatment Time: 44mins Procedures billed for this date of service:: HP, US, EX Assessment: Decreased exercise today and focus of pain reduction. Will need to resume strengthening to increase stability of the bilateral knee joints. Patient Education: Body/Joint mechanics, Home Exercise Program, Home Safety Patient demonstrates compliance with HEP?: Yes Short Term Goals Goal #1: pt with improved B knee ext -10 Goal to be met by: 03/22/18 Progress towards Goal:: Progressing Goal #2: pt amb in dept with improved heel stike, knee flex w/w/o AD Goal to be met by: 03/22/18 Progress towards Goal:: Progressing Goal #3: pt report pain <8/10 with activity Goal to be met by: 03/22/18 Progress towards Goal:: Partially Met Goal #4: pt independent with initial HEP Goal to be met by: 03/22/18 Progress towards Goal:: Partially Met Contract Project Manager Goals Goal #1: pt with improved ROM B knee flex 120 ext -5 Goal to be met by: 04/05/18 Goal #2: pt amb community distances w/wo AD with improved sequencing, decreased pain Goal to be met by: 04/05/18 Goal #3: Improve BLE strength 4+ to 5/5 Goal to be met by: 04/05/18 Goal #4: pt report increased ability to 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
--- NOTE | 2018-03-25 13:35 | RS.OPPTDN ---
Subjective Date of Note: 03/25/18 Visit #: 6 Date of Evaluation: 03/08/18 Payer Source: MEDICARE Treatment Diagnosis: OA of knees Current Subjective/complaints:: Patient reports he bilateral knee pain is better today since treatment yesterday. Reports she is walking better since starting therapy and she is able to do more activities at home. *Precautions: n/a Pain Assessment - Pain Description Pain Location: bilateral knee pain Current Pain Intensity: mild to mod Other Comments regarding Pain:: Reports pain decreased to mild with weight- bearing, no pain at rest, following treatment. - Treatment Modality: Ultrasound Parameters/Method Applied: [id number] total. US at 1.5w/cm2, x7mins to eaach knee joint prior to EX. Patient Position: Supine - Heat/Cryotherapy Treatment: Hot Pack ([id number] to the bilateral knees prior to US and EX. Patient in sitting. ) Interventions - Exercise/Activities/Manual Therapy Exercises/Activities: Resumed strengthening. Assisted stretching of the bialteral hamstrings, SKTC, and piriformis. Isometric hip add and isometric ankle inversion with hip IR, both with pillow. Added 2# to SLR with verbal and tactile cues to facilitate good contraction of quads. SLR/VMO no weight and tactile cue to encourage VMO contraction. Patient continues to have difficulty with quad sets. Green tband ankle df. Red tband for hip add and hip abd. Ended with additional hamstring stretching. Total minutes of Exercise: 19mins Manual Therapy: n/a HOME EXERCISE PROGRAM: pt given written HEP including QS, SLR, hip abd/add, SAQ , hamstring stretch, piriformis stretch. - Charges Timed Code Treatment Minutes: 33mins Total Treatment Time: 53mins Procedures billed for this date of service:: HP, US, EX Assessment: Patient reporting improvement in pain and in daily activities. Patient Education: Education of diagnosis, Body/Joint mechanics, Home Exercise Program Patient demonstrates compliance with HEP?: Yes Short Term Goals Goal #1: pt with improved B knee ext -10 Goal to be met by: 03/22/18 Progress towards Goal:: Progressing Goal #2: pt amb in dept with improved heel stike, knee flex w/w/o AD Goal to be met by: 03/22/18 Progress towards Goal:: Progressing Goal #3: pt report pain <8/10 with activity Goal to be met by: 03/22/18 Progress towards Goal:: Partially Met Goal #4: pt independent with initial HEP Goal to be met by: 03/22/18 Progress towards Goal:: Met Assisted Goals Goal #1: pt with improved ROM B knee flex 120 ext -5 Goal to be met by: 04/05/18 Progress towards goal: Progressing Goal #2: pt amb community distances w/wo AD with improved sequencing, decreased pain Goal to be met by: 04/05/18 Progress towards goal: Progressing Goal #3: Improve BLE strength 4+ to 5/5 Goal to be met by: 04/05/18 Goal #4: pt report increased ability to perform normal analytics specialist Goal to be met by: 04/05/18 Progress towards goal: Progressing Plan PLAN OF CARE EXPIRES ON:: 04/05/18 ORDER # VISITS AND/OR THROUGH DATE: 04/05/18 PLAN: Progress with strengthening and ROM of the bilateral LE's to increase functional gait and activity level.
--- NOTE | 2018-03-31 13:49 | RS.CXNS ---
Date of scheduled appointment: 03/31/18 Type: No Show
--- NOTE | 2018-04-01 16:36 | RS.OPPTDN ---
Subjective Date of Note: 04/01/18 Visit #: 7 Date of Evaluation: 03/08/18 Payer Source: MEDICARE Treatment Diagnosis: OA of knees Current Subjective/complaints:: Patient says that her knees continue to bother her. Reports she doesn't know what the doctor may decide to do. She says she feels therapy helps temporarily. *Precautions: n/a - Treatment Modality: Ultrasound Parameters/Method Applied: continuous @ 1.5 w/cm2 x 7 mins each knee (medially/ distally/laterally) Patient Position: Supine - Heat/Cryotherapy Treatment: Hot Pack (bilateral knees in sitting x 15 mins) Interventions - Exercise/Activities/Manual Therapy Exercises/Activities: QS, SLR 2#, ham curls with red tband, DF with green tband , ball squeezes bilaterally 2x10 reps. Patient demo good control of quads during SLR today bilaterally. Total minutes of Exercise: 16 Manual Therapy: n/a HOME EXERCISE PROGRAM: pt given written HEP including QS, SLR, hip abd/add, SAQ , hamstring stretch, piriformis stretch. - Charges Timed Code Treatment Minutes: 30 Total Treatment Time: 45 Procedures billed for this date of service:: hp, u/s, ex Patient Education: Body/Joint mechanics, Home Exercise Program Patient demonstrates compliance with HEP?: Yes Short Term Goals Goal #1: pt with improved B knee ext -10 Goal to be met by: 03/22/18 Progress towards Goal:: Progressing Goal #2: pt amb in dept with improved heel stike, knee flex w/w/o AD Goal to be met by: 03/22/18 Progress towards Goal:: Progressing Goal #3: pt report pain <8/10 with activity Goal to be met by: 03/22/18 Progress towards Goal:: Partially Met Goal #4: pt independent with initial HEP Goal to be met by: 03/22/18 Progress towards Goal:: Met Mcc Goals Goal #1: pt with improved ROM B knee flex 120 ext -5 Goal to be met by: 04/05/18 Progress towards goal: Progressing Goal #2: pt amb community distances w/wo AD with improved sequencing, decreased pain Goal to be met by: 04/05/18 Progress towards goal: Progressing Goal #3: Improve BLE strength 4+ to 5/5 Goal to be met by: 04/05/18 Goal #4: pt report increased ability to perform normal brush hand Goal to be met by: 04/05/18 Progress towards goal: Progressing Plan PLAN OF CARE EXPIRES ON:: 04/05/18 ORDER # VISITS AND/OR THROUGH DATE: 04/05/18 PLAN: Patient to cotinue x 1 more session per order. Reassess LE Index.
--- NOTE | 2018-04-05 13:45 | RS.OPPTDN ---
Subjective Date of Note: 04/05/18 Visit #: 8 Date of Evaluation: 03/08/18 Payer Source: MEDICARE Treatment Diagnosis: OA of knees Current Subjective/complaints:: Patient says she walked throughout [employer] yesterday forgetting her rollator. She says she had increased pain to both knees also including her back. She has obtained an order to begin treatment for her back. *Precautions: n/a Pain Assessment - Pain Description Pain Location: both knees and low back - Treatment Modality: Ultrasound Parameters/Method Applied: continuous @ 1.5 w/cm2 x 8 mins each knee Patient Position: Supine - Heat/Cryotherapy Treatment: Hot Pack (bilateral knees in sitting x 20 mins) Interventions - Exercise/Activities/Manual Therapy Exercises/Activities: Patient received passive stretching bilaterally to SKTC, knee flexion, hamstrings, and heel cords. She performs QS, SLR 2#, and assisted her with completing LE Functional Index. Patient was encouraged to continue with HEP daily and use of ice/heat at home for pain management. She will be attending for eval of her low back and advised her to ask us if she any questions regarding her knees/tbands. Total minutes of Exercise: 17 Manual Therapy: n/a HOME EXERCISE PROGRAM: pt given written HEP including QS, SLR, hip abd/add, SAQ , hamstring stretch, piriformis stretch. - Objective Findings Observations,measurements,etc.: Today, extension is more limited bilaterally. L (-9), R (-5). But, patient had recently met the ROM goal. Pain is heightened and limited range related [facility] - Charges Timed Code Treatment Minutes: 33 Total Treatment Time: 53 Procedures billed for this date of service:: hp, u/s, ex Assessment: Patient has demo some improvement allowing her to raise to the next category. She verbalizes decreased knee pain and improved strength through therapy. She does have difficulty remaining with humberto prolonged walking regarding the knees and her back. Currently, she is going to proceed with her order to eval and treat her low back. She is consistent with HEP daily and was educated on better body mechanics regarding the knees and her continued limitations. Patient Education: Body/Joint mechanics, Home Exercise Program, Education of Plan of Care Patient demonstrates compliance with HEP?: Yes Short Term Goals Goal #1: pt with improved B knee ext -10 Goal to be met by: 03/22/18 Progress towards Goal:: Met Goal #2: pt amb in dept with improved heel stike, knee flex w/w/o AD Goal to be met by: 03/22/18 Progress towards Goal:: Progressing Comments:: Improved, but less so today because of recent prolonged amb Goal #3: pt report pain <8/10 with activity Goal to be met by: 03/22/18 Progress towards Goal:: Partially Met Goal #4: pt independent with initial HEP Goal to be met by: 03/22/18 Progress towards Goal:: Met Skilled Nursing Goals Goal #1: pt with improved ROM B knee flex 120 ext -5 Goal to be met by: 04/05/18 Progress towards goal: Partially Met Comments: L knee is -6 Goal #2: pt amb community distances w/wo AD with improved sequencing, decreased pain Goal to be met by: 04/05/18 Progress towards goal: Progressing Goal #3: Improve BLE strength 4+ to 5/5 Goal to be met by: 04/05/18 Progress towards goal: Met Goal #4: pt report increased ability to perform normal count team clerk Goal to be met by: 04/05/18 Progress towards goal: Progressing Plan PLAN OF CARE EXPIRES ON:: 04/05/18 ORDER # VISITS AND/OR THROUGH DATE: 04/05/18 PLAN: Patient to be discharged as she has completed order and she wishes to begin eval for her back.
--- NOTE | 2018-04-06 10:17 | RS.OPPTDC ---
Date of Discharge: 04/05/18 Date of Evaluation: 03/08/18 Number of Visits: 8 Treatment Diagnosis: OA of knees Current Level of Function: pt improved LE functional score to 33/80. She continues with difficulty in ambulation and decreased heel strike BLE. She is consistent with HEP daily. pt has demonstrated improved ROM however on date of dc pt was limited due to prolonged amb. Current Complaints/Gains: pt reports improvement but slowly decreased pain B knees. She states she wants to begin treatment for her back. She states that increased amb increased back and knee pain. Pain Assessment - Pain Description Pain Location: B knees and low back Pain Description: Aching Functional Outcome Measure LE Functional Scale: 33 (59%) - G Codes & Severity Modifier G Codes & Modifier: mobility walking and moving around CK. mobility walking and moving around CJ Source of G Code score: LE functional scale and pt presentation Observation - Observation Posture: Forward Head, Rounded Shoulders, Increased Thoracic Kyphosis, Decreased Lumbar Lordosis Handedness: Right Gait - Gait Pattern General Gait Pattern Observation: Antalgic Gait General Range of Motion: had previously met ROM goal, this visit ROM limited LLE knee - 9 ext, RLE -5 ext. Muscle Strength: BLE 4 to 4+/5 Interventions - Exercise/Activities/Manual Therapy Exercises/Activities: n/a Manual Therapy: n/a HOME EXERCISE PROGRAM: pt given written HEP including QS, SLR, hip abd/add, SAQ , hamstring stretch, piriformis stretch. - Charges Timed Code Treatment Minutes: n/a Total Treatment Time: n/a Procedures billed for this date of service:: n/a Assessment Assessment: pt met STG 1, 4, and LTG 3 progressing slowly toward remaining goals. pt continues with limited ROM. Patient Education: Home Exercise Program, Education of Plan of Care Rehab Potential: Good Short Term Goals Goal #1: pt with improved B knee ext -10 Goal to be met by: 03/22/18 Progress towards Goal:: Met Goal #2: pt amb in dept with improved heel stike, knee flex w/w/o AD Goal to be met by: 03/22/18 Progress towards Goal:: Progressing Goal #3: pt report pain <8/10 with activity Goal to be met by: 03/22/18 Progress towards Goal:: Partially Met Goal #4: pt independent with initial HEP Goal to be met by: 03/22/18 Progress towards Goal:: Met Cardiac Exercise Specialist Goals Goal #1: pt with improved ROM B knee flex 120 ext -5 Goal to be met by: 04/05/18 Progress towards goal: Partially Met Goal #2: pt amb community distances w/wo AD with improved sequencing, decreased pain Goal to be met by: 04/05/18 Progress towards goal: Progressing Goal #3: Improve BLE strength 4+ to 5/5 Goal to be met by: 04/05/18 Progress towards goal: Met Goal #4: pt report increased ability to perform normal 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
== END 2018-04-10 23:59 ==
PROVIDERS: ATTEND Orthopaedic Surgery
DX: M17.0 Bilateral primary osteoarthritis of knee (principal)

== ENCOUNTER 2018-04-26 13:20 | Outpatient (CLI) ==
--- NOTE | 2018-04-27 09:56 | MAMMO ---
EXAM: Digital screening mammogram with tomosynthesis HISTORY: Screening COMPARISON: 03/18/2017 FINDINGS: Digital MLO and CC views of the right and left breast were performed. Tomosynthesis was performed. Computer aided detection utilized. There are scattered fibroglandular densities. Benign bilateral calcifications. There is no evidence for mass, asymmetry, distortion, or suspicious calci fications in either breast. IMPRESSION: 1. No evidence of malignancy in the right or left breast. 2. Annual screening mammogram is recommended in one year. BIRADS category 2, benign
== END 2018-04-26 13:21 | disposition home or self-care (01) ==
LOC: RAD 13:20
PROVIDERS: ATTEND Internal Medicine
DX: Z12.31 Encounter for screening mammogram for malignant neoplasm of breast (principal)
CPT/HCPCS: 77067